=== PATIENT | female | born 1935 | race American Indian/Alaskan Native ===

== ENCOUNTER 2017-07-07 11:45 | Inpatient (IN) | payer MEDICARE ==
[2017-07-07 13:19] LABS: BASO # 0.1 K/uL (0.0-0.2); BASO % 0.8 % (0.0-2.0); EOS % 0.1 % (0.0-4.0); HEMOGLOBIN 11.7 g/dL (11.0-16.0); LYMPH # 1.6 K/uL (1.0-4.3); LYMPH % 15.4 % (20.0-40.0); MEAN CELL VOLUME 88.8 fL (81.0-99.0); MEAN CORPUSCULAR HEMOGLOBIN 29.2 pg (27.0-31.0); MEAN CORPUSCULAR HGB CONC 32.9 g/dL (33.0-37.0); MEAN PLATELET VOLUME 9.2 fL (7.2-11.7); NEUT # 7.6 K/uL (1.8-7.0); NEUT % 73.7 % (50.0-75.0); RBC 4.01 Mil/uL (3.80-5.20); RED CELL DISTRIBUTION WIDTH 15.2 % (11.5-14.5); WHITE BLOOD COUNT 10.3 K/uL (4.8-10.8)
[2017-07-07 13:27] LABS: INR 1.1; PROTHROMBIN TIME 12.6 SECONDS (9.7-12.2)
[2017-07-07 13:31] LABS: SQUAMOUS EPITHIAL 94 /hpf (0-5); URINE BACTERIA MOD (<OCC); URINE BILIRUBIN NEGATIVE (NEGATIVE); URINE BLOOD 2+ (NEGATIVE); URINE CLARITY Turbid (Clear); URINE GLUCOSE (UA) NORMAL (Normal); URINE LEUKOCYTE ESTERASE 3+ Leu/uL (Negative); URINE PROTEIN 1+ mg/dL (NEGATIVE); URINE UROBILINOGEN NORMAL mg/dL (0.2-1.0)
[2017-07-07 13:32] LABS: URINE COLOR YELLOW (YELLOW)
[2017-07-07 13:35] LABS: ALB/GLOB RATIO 1.2 (1.0-2.1); ALBUMIN 4.1 g/dL (3.5-5.0); ALT/SGPT 13 U/L (9-52); AST/SGOT 19 U/L (14-36); BLOOD UREA NITROGEN 13 mg/dL (7-17); CALCIUM 8.9 mg/dl (8.6-10.4); GFR AFRICAN-AMERICAN > 60; GFR NON-AFRICAN AMERICAN > 60
[2017-07-07 13:45] LABS: B-TYPE NATRIURETIC PEPTIDE 179 pg/mL (0-900); CK-MB 1.17 ng/mL (0.0-3.38)
--- NOTE | 2017-07-07 14:04 | C.PDOC ---
History Of Present Illness 81yo female, brought to ER for evaluation as she has been falling frequently and has had periods of confusion and became forgetful. The patient and family are unreliable historians. Patient had 2 falls from her bed last night and currently is unable to recall the falls; she denies any injuries however the family noted some swelling and redness to her left orthodoxy. Patient is currently complaining of bilateral leg swelling for the past several weeks. Time Seen by Provider: 07/07/17 12:42 Chief Complaint (Nursing): Lower Extremity Problem/Injury History Per: Patient, Family History/Exam Limitations: other (poor historians) Onset/Duration Of Symptoms: Persistent Current Symptoms Are (Timing): Still Present Past Medical History Reviewed: Historical Data, Nursing Documentation, Vital Signs Vital Signs: Last Vital Signs Temp 99.2 F 07/07/17 18:10 Pulse 77 07/07/17 18:10 Resp 20 07/07/17 18:10 BP 173/83 H 07/07/17 18:10 Pulse Ox 99 07/07/17 18:10 Surgical History: No Surg Hx Family History: States: No Known Family Hx - Social History Hx Alcohol Use: No Hx Substance Use: No - Immunization History Hx Tetanus Toxoid Vaccination: Yes Hx Influenza Vaccination: No Hx Pneumococcal Vaccination: No Review Of Systems Except As Marked, All Systems Reviewed And Found Negative. Constitutional: Positive for: Other (mutliple falls). Negative for: Fever, Chills Cardiovascular: Negative for: Chest Pain Respiratory: Negative for: Shortness of Breath Musculoskeletal: Positive for: Other (bilateral leg swelling) Neurological: Positive for: Confusion Physical Exam - Physical Exam Appears: Non-toxic Skin: Normal Color, Warm, Dry Head: Normacephalic, Swelling (mild swelling and erythema noted to left orthodoxy) Eye(s): bilateral: Normal Inspection, PERRL, EOMI Oral Mucosa: Moist Neck: Normal ROM, Supple Chest: Symmetrical Cardiovascular: Rhythm Regular Respiratory: Normal Breath Sounds Gastrointestinal/Abdominal: Normal Exam, Soft, No Tenderness Back: Normal Inspection Extremity: Normal ROM, Pedal Edema (bilateral ) Neurological/Psych: Normal Speech, Normal Cognition, Normal Motor, Normal Sensation ED Course And Treatment - Laboratory Results Result Diagrams: 07/07/17 13:12 07/07/17 13:12 ECG: Interpreted By Me, Viewed By Me ECG Rhythm: Sinus Rhythm, ST/T Changes (nonspecific) ECG Interpretation: Normal Rate From EC O2 Sat by Pulse Oximetry: 99 (RA) Pulse Ox Interpretation: Normal - Other Rad CXR X-Ray: Read By Radiologist Interpretation: PROCEDURE: CHEST RADIOGRAPH, 1 VIEW. HISTORY: multiple falls. COMPARISON: None available. FINDINGS: LUNGS: Clear. PLEURA: No pneumothorax or pleural fluid seen. CARDIOVASCULAR: No radiographic findings to suggest acute or significant cardiovascular disease. OSSEOUS STRUCTURES: No significant abnormalities. VISUALIZED UPPER ABDOMEN: Normal. OTHER FINDINGS: None. IMPRESSION: No active disease. - CT Scan/US CT Head Other Rad Studies (CT/US): Radiology Report Reviewed CT/US Interpretation: PROCEDURE: CT HEAD WITHOUT CONTRAST. HISTORY: multiple falls. COMPARISON: None available. TECHNIQUE: Axial computed tomography images were obtained through the head/brain without intravenous contrast. Radiation dose: Total exam DLP = 1602.96 mGy-cm. This CT exam was performed using one or more of the following dose reduction techniques: Automated exposure control, adjustment of the mA and/or kV according to patient size, and/ or use of iterative reconstruction technique. FINDINGS: HEMORRHAGE: No intracranial hemorrhage. BRAIN: Diffuse atrophy with prominence of the ventricles and sulci noted. No mass effect or edema. Moderate scattered white matter hypodensities, which are nonspecific, but often seen with chronic microvascular ischemic disease. Please note that MRI with diffusion imaging is more sensitive in the detection of acute ischemic event. VENTRICLES: No hydrocephalus. CALVARIUM: Unremarkable. PARANASAL SINUSES: Unremarkable as visualized. No significant inflammatory changes. MASTOID AIR CELLS: Unremarkable as visualized. No inflammatory changes. OTHER FINDINGS: None. IMPRESSION: Moderate nonspecific white matter changes. Please note that MRI with diffusion imaging is more sensitive in the detection of acute ischemic event. Progress Note: Labs, urinalysis ordered and reviewed, patient has a UTI. Rocephin IVPB given. CT head reviewed with no acute findings. Patient informed of plan for admission and is agreeable. - Physician Consult Information Time Consulting Physician Contacted: 16:40 Outcome Of Conversation: Case discussed with Dr. Conteh, patient's PCP who recommends admission. Disposition - Disposition Disposition: HOSPITALIZED Disposition Time: 16:39 Condition: FAIR - Clinical Impression Clinical Impression: Altered mental status, UTI (urinary tract infection), Frequent falls - PA / MANUFACTURERS REPRESENTATIVE / Resident Statement MD/DO has reviewed & agrees with the documentation as recorded. - Scribe Statement The provider has reviewed the documentation as recorded by the Scribe (Anat Figueroa) Provider Attestation: All medical record entries made by the Scribe were at my direction and personally dictated by me. I have reviewed the chart and agree that the record accurately reflects my personal performance of the history, physical exam, medical decision making, and the department course for this patient. I have also personally directed, reviewed, and agree with the discharge instructions and disposition.
[2017-07-07] MEDS ORDERED: cefTRIAXone IV 1 gm in Dextros 50 ML IVPB STA (14:07)
[2017-07-07] MEDS ORDERED: cefTRIAXone IV 1 gm in Dextros 50 ML IVPB ONE (15:16)
--- NOTE | 2017-07-07 15:36 | RAD ---
PROCEDURE: CHEST RADIOGRAPH, 1 VIEW HISTORY: multiple falls COMPARISON: None available. FINDINGS: LUNGS: Clear. PLEURA: No pneumothorax or pleural fluid seen. CARDIOVASCULAR: No radiographic findings to suggest acute or significant cardiovascular disease. OSSEOUS STRUCTURES: No significant abnormalities. VISUALIZED UPPER ABDOMEN: Normal. OTHER FINDINGS: None. IMPRESSION: No active disease.
--- NOTE | 2017-07-07 15:46 | CT ---
PROCEDURE: CT HEAD WITHOUT CONTRAST. HISTORY: multiple falls COMPARISON: None available. TECHNIQUE: Axial computed tomography images were obtained through the head/brain without intravenous contrast. Radiation dose: Total exam DLP = 1602.96 mGy-cm. This CT exam was performed using one or more of the following dose reduction techniques: Automated exposure control, adjustment of the mA and/or kV according to patient size, and/or use of iterative reconstruction technique. FINDINGS: HEMORRHAGE: No intracranial hemorrhage. BRAIN: Diffuse atrophy with prominence of the ventricles and sulci noted. No mass effect or edema. Moderate scattered white matter hypodensities, which are nonspecific, but often seen with chronic microvascular ischemic disease. Please note that MRI with diffusion imaging is more sensitive in the detection of acute ischemic event. VENTRICLES: No hydrocephalus. CALVARIUM: Unremarkable. PARANASAL SINUSES: Unremarkable as visualized. No significant inflammatory changes. MASTOID AIR CELLS: Unremarkable as visualized. No inflammatory changes. OTHER FINDINGS: None. IMPRESSION: Moderate nonspecific white matter changes. Please note that MRI with diffusion imaging is more sensitive in the detection of acute ischemic event.
[2017-07-07] MEDS: Sodium Chloride 0.9% 1,000 ML IV SCH ×2 (19:30→19:48)
[2017-07-07] MEDS: (Novolin R) Insulin Human Regular 100 units/ml vial SC SCH (21:13)
--- NOTE | 2017-07-07 22:52 | CP.PCM.HP ---
History of Present Illness - History of Present Illness History of Present Illness: Chief Complaint : recurrent fallsLower Extremity Problem/Injury History Of Present Illness 81yo female with PMh of DM , not on any medication, HTn, hyperlipidemia, independent in ADL,brought to ER for evaluation as she has been falling frequently and has had periods of confusion and became forgetful. The patient and family are unreliable historians. Patient had 2 falls from her bed last night and currently is unable to recall the falls any events prior to fall or after fall; she denies any injuries however the family noted some swelling and redness to her left hindu. Patient is currently complaining of bilateral leg swelling for the past several weeks. Present on Admission - Present on Admission Any Indicators Present on Admission: Yes Review of Systems - Constitutional Constitutional: Fatigue, Lethargy, Malaise, Weakness - EENT Eyes: absent: As Per HPI, Blind Spots, Blurred Vision, Change in Vision, Decreased Night Vision, Diplopia, Discharge, Dry Eye, Exophthalmos, Floaters, Irritation, Itchy Eyes, Loss of Peripheral Vision, Pain, Photophobia, Requires Corrective Lenses, Sees Flashes, Spots in Vision, Tunnel Vision, Other Visual Disturbances, Loss of Vision, Other Ears: absent: As Per HPI, Decreased Hearing, Ear Discharge, Ear Pain, Tinnitus, Abnormal Hearing, Disequilibrium, Dizziness, Other Nose/Mouth/Throat: absent: As Per HPI, Epistaxis, Nasal Congestion, Nasal Discharge, Nasal Obstruction, Nasal Trauma, Nose Pain, Post Nasal Drip, Sinus Pain, Sinus Pressure, Bleeding Gums, Change in Voice, Dental Pain, Dry Mouth, Dysphagia, Halitosis, Hoarsness, Lip Swelling, Mouth Lesions, Mouth Pain, Odynophagia, Sore Throat, Throat Swelling, Tongue Swelling, Facial Pain, Neck Pain, Neck Mass, Other - Respiratory Respiratory: absent: As Per HPI, Cough, Dyspnea, Hemoptysis, Dyspnea on Exertion , Wheezing, Snoring, Stridor, Pain on Inspiration, Chest Congestion, Excessive Mucous Production, Change in Mucous Color, Pain with Coughing, Other - Gastrointestinal Gastrointestinal: absent: As Per HPI, Abdominal Pain, Belching, Bloating, Change in Bowel Habits, Change in Stool Character, Coffee Ground Emesis, Constipation, Cramping, Diarrhea, Dyspepsia, Dysphagia, Early Satiety, Excessive Flatus, Fecal Incontinence, Heartburn, Hematemesis, Hematochezia, Loose Stools, Melena, Nausea, Odynophagia, Temesmus, Vomiting, Other - Genitourinary Genitourinary: absent: As Per HPI, Change in Urinary Stream, Difficulty Urinating, Dysuria, Flank Pain, Hematuria, Pyuria, Nocturia, Urinary Incontinence, Urinary Frequency, Urinary Hesitance, Urinary Urgency, Voiding Freq/Small Amts, Freq UTI, Hx Renal/Bladder Calculi, Hx /Renal Surgery, Bladder Distension, Other - Musculoskeletal Musculoskeletal: Abnormal Gait, Muscle Weakness, Myalgias, Stiffness - Integumentary Integumentary: New Lesions, Wounds - Neurological Neurological: Frequent Falls Past Patient History - Past Medical History & Family History Past Medical History?: Yes - Past Social History Smoking Status: Light Smoker < 10 Cigarettes Daily - CARDIAC Hx Hypertension: Yes - PULMONARY Hx Respiratory Disorders: No - NEUROLOGICAL Hx Neurological Disorder: No - HEENT Hx HEENT Problems: No - RENAL Hx Chronic Kidney Disease: No - ENDOCRINE/METABOLIC Hx Diabetes Mellitus Type 2: Yes - HEMATOLOGICAL/ONCOLOGICAL Hx Blood Disorders: No - INTEGUMENTARY Hx Dermatological Problems: No - MUSCULOSKELETAL/RHEUMATOLOGICAL Hx Musculoskeletal Disorders: No Hx Falls: Yes - GASTROINTESTINAL Hx Gastrointestinal Disorders: No - GENITOURINARY/GYNECOLOGICAL Hx Genitourinary Disorders: No - PSYCHIATRIC Hx Psychophysiologic Disorder: No Hx Substance Use: No - SURGICAL HISTORY Hx Surgeries: No - ANESTHESIA Hx Anesthesia: No Hx Anesthesia Reactions: No Meds Allergies/Adverse Reactions: Allergies Allergy/AdvReac Type Severity Reaction Status Date / Time No Known Allergies Allergy Unverified 07/07/17 12:04 Physical Exam - Constitutional Appears: No Acute Distress - Head Exam Head Exam: ATRAUMATIC, NORMAL INSPECTION, NORMOCEPHALIC - Eye Exam Eye Exam: EOMI, Normal appearance, PERRL Pupil Exam: NORMAL ACCOMODATION, PERRL - Respiratory Exam Respiratory Exam: Clear to Auscultation Bilateral, NORMAL BREATHING PATTERN - Cardiovascular Exam Cardiovascular Exam: REGULAR RHYTHM - Extremities Exam Additional comments: tenderness on right foot arch erythema, laceration Results - Vital Signs Recent Vital Signs: Last Vital Signs Temp 97.7 F 07/07/17 20:45 Pulse 89 07/07/17 20:45 Resp 20 07/07/17 20:45 BP 150/65 07/07/17 20:45 Pulse Ox 97 07/07/17 20:45 - Labs Result Diagrams: 07/07/17 13:12 07/07/17 13:12 Labs: Laboratory Results - last 24 hr 07/07/17 07/07/17 07/07/17 13:12 13:12 13:15 WBC 10.3 RBC 4.01 Hgb 11.7 Hct 35.6 MCV 88.8 MCH 29.2 MCHC 32.9 L RDW 15.2 H Plt Count 239 MPV 9.2 Neut % (Auto) 73.7 Lymph % (Auto) 15.4 L [place] % (Auto) 10.0 Eos % (Auto) 0.1 Baso % (Auto) 0.8 Neut # (Auto) 7.6 H Lymph # (Auto) 1.6 [place] # (Auto) 1.0 H Eos # (Auto) 0.0 Baso # (Auto) 0.1 PT INR APTT Sodium 140 Potassium 4.1 Chloride 102 Carbon Dioxide 26 Anion Gap 16 BUN 13 Creatinine 0.7 Est GFR ( Amer) > 60 Est GFR (Non-Af Amer) > 60 POC Glucose (mg/dL) Random Glucose 111 H Calcium 8.9 Magnesium 1.9 Total Bilirubin 0.7 AST 19 ALT 13 Alkaline Phosphatase 80 Total Creatine Kinase 92 CK-MB (Mass) 1.17 Troponin I < 0.0120 NT-Pro-B Natriuret Pep 179 Total Protein 7.4 Albumin 4.1 Globulin 3.3 Albumin/Globulin Ratio 1.2 Urine Color Yellow Urine Clarity Turbid Urine pH 5.0 Ur Specific [place] 1.017 Urine Protein 1+ H Urine Glucose (UA) Normal Urine Ketones Negative Urine Blood 2+ H Urine Nitrate Negative Urine Bilirubin Negative Urine Urobilinogen Normal Ur Leukocyte Esterase 3+ H Urine WBC (Auto) 43 H Urine RBC (Auto) 15 H Ur Squamous Epith Cells 94 H Urine Bacteria Mod H 07/07/17 07/07/17 13:18 21:00 WBC RBC Hgb Hct MCV MCH MCHC RDW Plt Count MPV Neut % (Auto) Lymph % (Auto) [place] % (Auto) Eos % (Auto) Baso % (Auto) Neut # (Auto) Lymph # (Auto) [place] # (Auto) Eos # (Auto) Baso # (Auto) PT 12.6 H INR 1.1 APTT 38 H Sodium Potassium Chloride Carbon Dioxide Anion Gap BUN Creatinine Est GFR ( Amer) Est GFR (Non-Af Amer) POC Glucose (mg/dL) 121 H Random Glucose Calcium Magnesium Total Bilirubin AST ALT Alkaline Phosphatase Total Creatine Kinase CK-MB (Mass) Troponin I NT-Pro-B Natriuret Pep Total Protein Albumin Globulin Albumin/Globulin Ratio Urine Color Urine Clarity Urine pH Ur Specific [place] Urine Protein Urine Glucose (UA) Urine Ketones Urine Blood Urine Nitrate Urine Bilirubin Urine Urobilinogen Ur Leukocyte Esterase Urine WBC (Auto) Urine RBC (Auto) Ur Squamous Epith Cells Urine Bacteria Assessment & Plan (1) Diabetes Status: Acute (2) HTN (hypertension) Status: Acute (3) Altered mental status Status: Acute (4) Frequent falls Status: Acute
[2017-07-08] MEDS: Sodium Chloride 0.9% 1,000 ML IV SCH ×2 (06:31→19:00)
[2017-07-08] MEDS: (Novolin R) Insulin Human Regular 100 units/ml vial SC SCH ×4 (07:56→21:58)
[2017-07-08] MEDS: Enoxaparin 40 mg Syringe SC SCH (10:10)
[2017-07-08 14:19] LABS: HEMOGLOBIN 12.2 g/dL (11.0-16.0); MEAN CORPUSCULAR HGB CONC 32.9 g/dL (33.0-37.0); MEAN PLATELET VOLUME 8.6 fL (7.2-11.7); RBC 4.19 Mil/uL (3.80-5.20); RED CELL DISTRIBUTION WIDTH 14.6 % (11.5-14.5)
[2017-07-08 14:56] LABS: BLOOD UREA NITROGEN 8 mg/dL (7-17); CALCIUM 8.2 mg/dl (8.6-10.4); GFR AFRICAN-AMERICAN > 60; GFR NON-AFRICAN AMERICAN > 60
--- NOTE | 2017-07-08 16:14 | RAD ---
PROCEDURE: Bilateral Knee Radiographs. HISTORY: S/P FALL COMPARISON: None. FINDINGS: BONES: Right Knee: Subchondral sclerosis and knee joint line spurring present findings more advanced and right lateral femoral tibial compartment Left Knee: Similar to the right side JOINTS: Right Knee: Moderate to severe osteoarthrosis lateral femoral tibial compartment. Limited evaluation of the lateral tibial subchondral region -marked narrowing, subchondral sclerosis and probable projectional effects limiting assessment Left knee: Moderate osteoarthrosis lateral femoral tibial compartment SOFT TISSUES: Right Knee: Normal. Left Knee: Normal. JOINT EFFUSION: Right Knee: Present larger than left Left Knee: Present OTHER FINDINGS: Right patellar [place] IMPRESSION: Bilateral arthrosis right knee greater than left right lateral tibial plateau subchondral sclerosis and osseous hypertrophic changes -these findings limit optimal evaluation for any additional subchondral pathology here. Specifically an additional right lateral tibial plateau subchondral stress fracture and/or subchondral insufficiency type fracture is difficult to completely exclude. If clinically suspect this, consider CT or MRI to further evaluate Bilateral effusions right greater than left. Right patellar [place]
--- NOTE | 2017-07-08 23:48 | CP.PCM.PN ---
Subjective - Date & Time of Evaluation Date of Evaluation: 07/08/17 Time of Evaluation: 17:00 - Subjective Subjective: Patient is seen and evaluated today during routine rounds, pt is confused, delerious, she has mittens in her hands Objective - Vital Signs/Intake and Output Vital Signs (last 24 hours): Temp Pulse Resp BP Pulse Ox 98 F 72 20 150/76 96 07/08/17 16:22 07/08/17 16:22 07/08/17 16:22 07/08/17 16:22 07/08/17 16:22 Intake and Output: 07/08/17 07/09/17 18:59 06:59 Intake Total 1000 842 Output Total 350 Balance 1000 492 - Medications Medications: Current Medications Acetaminophen (Tylenol 325mg Tab) 650 mg PO Q6 PRN PRN Reason: Pain, moderate (4-7) Enoxaparin Sodium (Lovenox) 40 mg SC DAILY [facility] Last Admin: 07/08/17 10:10 Dose: 40 mg Ceftriaxone Sodium 1 gm/ (Sodium Chloride) 100 mls @ 100 mls/hr IVPB DAILY [facility] PRN Reason: Protocol Last Admin: 07/08/17 09:53 Dose: 100 mls/hr Sodium Chloride (Sodium Chloride 0.9%) 1,000 mls @ 80 mls/hr IV .[id number] [facility] Last Admin: 07/08/17 19:00 Dose: Not Given Insulin Human Regular (Novolin R) 0 unit SC ACHS [facility] PRN Reason: Protocol Last Admin: 07/08/17 21:58 Dose: Not Given Losartan Potassium (Cozaar) 50 mg PO DAILY [facility] Last Admin: 07/08/17 09:53 Dose: 50 mg - Labs Labs: 07/08/17 14:11 07/08/17 14:11 PT 12.6 SECONDS (9.7-12.2) H 07/07/17 13:18 INR 1.1 07/07/17 13:18 APTT 38 SECONDS (21-34) H 07/07/17 13:18 - Constitutional Appears: No Acute Distress - Head Exam Head Exam: ATRAUMATIC, NORMAL INSPECTION, NORMOCEPHALIC - Eye Exam Eye Exam: EOMI, Normal appearance, PERRL Pupil Exam: NORMAL ACCOMODATION, PERRL - Respiratory Exam Respiratory Exam: Clear to Ausculation Bilateral, NORMAL BREATHING PATTERN - Cardiovascular Exam Cardiovascular Exam: REGULAR RHYTHM, +S1, +S2. absent: Murmur - GI/Abdominal Exam GI & Abdominal Exam: Soft, Normal Bowel Sounds. absent: Tenderness - Neurological Exam Neurological Exam: Altered Additional comments: disoriented to time, place , person delirious - Psychiatric Exam Psychiatric exam: Anxious - Skin Skin Exam: Normal Color Assessment and Plan (1) Diabetes Status: Acute (2) HTN (hypertension) Status: Acute (3) Altered mental status Assessment & Plan: rule out toxic metabolic encephalopathy dementia/ delerium dementia workup Status: Acute (4) Frequent falls Status: Acute (5) UTI (urinary tract infection) Assessment & Plan: antibiotics urine culture pending Status: Acute
[2017-07-09] MEDS: Sodium Chloride 0.9% 1,000 ML IV SCH (00:27)
[2017-07-09 07:34] LABS: BASO # 0.1 K/uL (0.0-0.2); EOS % 0.5 % (0.0-4.0); HEMOGLOBIN 12.3 g/dL (11.0-16.0); LYMPH # 1.8 K/uL (1.0-4.3); LYMPH % 19.1 % (20.0-40.0); MEAN CELL VOLUME 88.1 fL (81.0-99.0); MEAN CORPUSCULAR HEMOGLOBIN 29.3 pg (27.0-31.0); MEAN CORPUSCULAR HGB CONC 33.3 g/dL (33.0-37.0); MEAN PLATELET VOLUME 9.8 fL (7.2-11.7); MONO # 1.1 K/uL (0.0-0.8); MONO % 11.5 % (0.0-10.0); NEUT # 6.6 K/uL (1.8-7.0); NEUT % 67.9 % (50.0-75.0); RBC 4.19 Mil/uL (3.80-5.20); RED CELL DISTRIBUTION WIDTH 14.4 % (11.5-14.5); WHITE BLOOD COUNT 9.7 K/uL (4.8-10.8)
[2017-07-09 07:47] LABS: ALBUMIN 3.5 g/dL (3.5-5.0); ALT/SGPT 17 U/L (9-52); AST/SGOT 22 U/L (14-36); BLOOD UREA NITROGEN 5 mg/dL (7-17); CALCIUM 8.4 mg/dl (8.6-10.4); GFR AFRICAN-AMERICAN > 60; GFR NON-AFRICAN AMERICAN > 60
[2017-07-09] MEDS: (Novolin R) Insulin Human Regular 100 units/ml vial SC SCH ×4 (07:47→22:10)
[2017-07-09] MEDS: Enoxaparin 40 mg Syringe SC SCH (09:27)
[2017-07-09] MEDS ORDERED: Potassium Chloride 20 mEq ER Tab PO ONE (10:00)
[2017-07-09] MEDS ORDERED: Potassium Chloride 20 mEq/15 ml LIQ UD PO STA (11:16)
--- NOTE | 2017-07-09 11:28 | MRI ---
PROCEDURE: MRI BRAIN WITHOUT CONTRAST HISTORY: NEW ONSET OF DEMENTIA COMPARISON: Unenhanced head CT 12/07/2017. TECHNIQUE: Multiplanar, multisequence MR images of the brain were obtained without intravenous contrast enhancement. FINDINGS: The study is markedly compromised by motion artifacts throughout the vast majority of sequences acquired. HEMORRHAGE: No definitive intracranial hemorrhage identified. DWI: No definite evidence of an acute or early subacute infarction. BRAIN PARENCHYMA: There is no mass effect appreciated although diffuse cerebral atrophy and chronic microangiopathy appear reiterated. No suspicious extra-axial fluid collection identified. VENTRICLES: Unremarkable. No hydrocephalus. CRANIUM: Unremarkable. ORBITS: Grossly unremarkable. PARANASAL SINUSES/MASTOIDS: Clear VASCULAR SYSTEM: Skull base flow voids intact. OTHER FINDINGS: None. IMPRESSION: No definite acute separate brain infarction appreciable. Age-related neuro degenerative changes appear reiterated. The examination is compromised by excessive motion artifact as discussed above.
[2017-07-09 11:46] LABS: FOLATE 6.2 ng/mL
--- NOTE | 2017-07-09 12:33 | CARD ---
APPROVED REPORT EKG Measurement Heart [id number] <Conclusion> Normal sinus rhythm Nonspecific ST and T wave abnormality Abnormal ECG
--- NOTE | 2017-07-09 14:59 | CP.PCM.PN ---
Subjective - Date & Time of Evaluation Date of Evaluation: 07/09/17 Time of Evaluation: 14:53 - Subjective Subjective: Ortho Dr. Jean, full consult to follow 81F complains of right knee pain after fall per granddaughter. They give history as patient confused at times. She has had chronic knee pain due to arthritis and has seen Dr. Jean in the past, she can not remember if she has had injection in the past. She has had a few recent falls, but after latest she is complaining of right knee pain and is unable to walk. She has a walker for ambulation, but at times refuses to use it. She denies pain in other leg/knee/ upper extremities at thist time. Denies CP/SOB/n/v/dizziness/numbnss/ Objective - Vital Signs/Intake and Output Vital Signs (last 24 hours): Temp Pulse Resp BP Pulse Ox 98.0 F 66 20 165/71 H 95 07/09/17 07:00 07/09/17 07:00 07/09/17 07:00 07/09/17 07:00 07/09/17 07:00 Intake and Output: 07/09/17 07/09/17 06:59 18:59 Intake Total 842 Output Total 350 Balance 492 - Medications Medications: Current Medications Acetaminophen (Tylenol 325mg Tab) 650 mg PO Q6 PRN PRN Reason: Pain, moderate (4-7) Enoxaparin Sodium (Lovenox) 40 mg SC DAILY [facility] Last Admin: 07/09/17 09:27 Dose: 40 mg Ceftriaxone Sodium 1 gm/ (Sodium Chloride) 100 mls @ 100 mls/hr IVPB DAILY [facility] PRN Reason: Protocol Last Admin: 07/09/17 09:28 Dose: 100 mls/hr Sodium Chloride (Sodium Chloride 0.9%) 1,000 mls @ 80 mls/hr IV .[id number] [facility] Last Admin: 07/09/17 00:27 Dose: 80 mls/hr Insulin Human Regular (Novolin R) 0 unit SC ACHS [facility] PRN Reason: Protocol Last Admin: 07/09/17 12:34 Dose: 1 unit Losartan Potassium (Cozaar) 50 mg PO DAILY [facility] Last Admin: 07/09/17 09:28 Dose: 50 mg - Labs Labs: 07/09/17 07:19 07/09/17 07:19 PT 12.6 SECONDS (9.7-12.2) H 07/07/17 13:18 INR 1.1 07/07/17 13:18 APTT 38 SECONDS (21-34) H 07/07/17 13:18 - Extremities Exam Additional comments: L knee: valgus, mild, no jointeffusion, no laxity, no tenderness R knee : moderate valgus, TTP medial and lateral joint lines and popliteal fossa, mod+joint effusion, not warm no erythema, will do SLR but complains of pain with flexion, calves soft NT neg homans, no laxity to varus/valgus, doesn' t tolerate lang. No crepitus, skin intact +DP/PT pulses sensation intact Assessment and Plan (1) Degenerative arthritis of left knee Assessment & Plan: s/p fall r/o OA exacerbation vs fx significant joint effusion and tenderness ?insuff fx on xray CT ordered (pt likely not able to tolerate MRI) tammi/knee immobilizer as precaution VTE proph will update WB status after imaging d/w Dr. Jean, agrees with above Status: Acute (2) Primary osteoarthritis of right knee Status: Acute
[2017-07-09 15:47] LABS: FOLATE 4.9 ng/mL
--- NOTE | 2017-07-09 17:56 | CT ---
EXAM: CT Right Lower Extremity Without Intravenous Contrast, Knee EXAM DATE/TIME: Exam ordered 07/09/2017 4:18 PM CLINICAL HISTORY: 81 years old, female; Pain; Knee; Right TECHNIQUE: Axial computed tomography images of the right knee without intravenous contrast. All CT scans at this facility use one or more dose reduction techniques, viz.: automated exposure control; ma/kV adjustment per patient size (including targeted exams where dose is matched to indication; i.e. head); or iterative reconstruction technique. Coronal and sagittal reformatted images were created and reviewed. COMPARISON: No relevant prior studies available. FINDINGS: Bones/joints: There is a moderate to large knee joint effusion. There is generalized decrease in bone density. Moderately advanced, osteoarthritis is noted with joint space narrowing, large marginal osteophytes and subchondral sclerosis and subchondral cyst formation. No acute fracture. No dislocation. Soft tissues: Unremarkable. Vasculature: Vascular calcifications are present. IMPRESSION: 1. Moderately advanced primary osteoarthritis. 2. Moderate to large joint effusion
[2017-07-09 20:19] LABS: RAPID PLASMA REAGIN REACTIVE (NONREACTIVE)
--- NOTE | 2017-07-09 23:20 | CP.PCM.PN ---
Subjective - Date & Time of Evaluation Date of Evaluation: 07/09/17 Time of Evaluation: 17:35 - Subjective Subjective: pt is confused, restless and she has possibilty of right leg fracture Objective - Vital Signs/Intake and Output Vital Signs (last 24 hours): Temp Pulse Resp BP Pulse Ox 97.5 F L 85 18 174/68 H 96 07/09/17 16:50 07/09/17 16:50 07/09/17 16:50 07/09/17 16:50 07/09/17 16:50 Intake and Output: 07/09/17 07/10/17 18:59 06:59 Intake Total 1060 Output Total 500 Balance 560 - Medications Medications: Current Medications Acetaminophen (Tylenol 325mg Tab) 650 mg PO Q6 PRN PRN Reason: Pain, moderate (4-7) Enoxaparin Sodium (Lovenox) 40 mg SC DAILY [facility] Last Admin: 07/09/17 09:27 Dose: 40 mg Ceftriaxone Sodium 1 gm/ (Sodium Chloride) 100 mls @ 100 mls/hr IVPB DAILY [facility] PRN Reason: Protocol Last Admin: 07/09/17 09:28 Dose: 100 mls/hr Sodium Chloride (Sodium Chloride 0.9%) 1,000 mls @ 80 mls/hr IV .[id number] [facility] Last Admin: 07/09/17 00:27 Dose: 80 mls/hr Insulin Human Regular (Novolin R) 0 unit SC ACHS [facility] PRN Reason: Protocol Last Admin: 07/09/17 22:10 Dose: Not Given Losartan Potassium (Cozaar) 50 mg PO DAILY [facility] Last Admin: 07/09/17 09:28 Dose: 50 mg - Labs Labs: 07/09/17 07:19 07/09/17 07:19 PT 12.6 SECONDS (9.7-12.2) H 07/07/17 13:18 INR 1.1 07/07/17 13:18 APTT 38 SECONDS (21-34) H 07/07/17 13:18 - Constitutional Appears: No Acute Distress, Agitated - Respiratory Exam Respiratory Exam: Clear to Ausculation Bilateral, NORMAL BREATHING PATTERN - Cardiovascular Exam Cardiovascular Exam: REGULAR RHYTHM, +S1, +S2. absent: Murmur - Extremities Exam Additional comments: cast on right leg - Neurological Exam Neurological Exam: Oriented x3 Assessment and Plan (1) Diabetes Status: Acute (2) HTN (hypertension) Status: Acute (3) Altered mental status Status: Acute (4) Frequent falls Status: Acute
--- NOTE | 2017-07-10 03:59 | CON ---
DATE: CHIEF COMPLAINT/REASON FOR CONSULTATION: The patient was referred by Dr. Conteh for evaluation for change of mental status. The patient was evaluated for possible dementia, but the patient has been having increasing confusion according to the family and memory loss for the last few days. HISTORY OF PRESENT ILLNESS: This is case of a 81-year-old female, who was brought in here for change of mental status as well as history of multiple falls and increasing confusion. According to the granddaughter who was with her at bedside reports her grandmother was doing well until a few days ago. The patient also has been having problems keeping her balance and has been falling. She also has not been eating well and is complaining of some increased urgency to urinate. Urinalysis showed that the patient has evidence of urinary tract infection, admitted here for treatment. The patient when seen in the 4 bedded observation room, continues to have intermittent periods of confusion. She does not know that she is in the hospital, but she knows that she is in [place]. She is not agitated, but needs monitoring. The patient has received antibiotic when seen. PAST PSYCHIATRIC HISTORY: Denies any. The patient has a CAT scan of the head done earlier, that showed the following result. The patient showed diffuse atrophy with prominence of the ventricle and sulci noted. Otherwise, moderate nonspecific white matter changes. Please note that MRI of the diffusion imaging is more sensitive than detection of acute ischemic event. The patient had an MRI of the brain done subsequently and showed the following findings. No definite acute separate brain infraction appreciable. Age related neuro degenerative changes appears to be reiterated. The patient when seen today is calm, but still confused and seen in the four-bedded observation room. PAST MEDICAL HISTORY: The patient has history of diabetes, hypertension, history of degenerative arthritis in the left and right knee, history of frequent falls. DRUG AND ALCOHOL HISTORY: Denies any. PSYCHOSOCIAL HISTORY: The patient lives with her family, a two family house. She cannot give much psychosocial history due to her confusion. CURRENT MEDICATIONS: Ceftriaxone, losartan, Lovenox, Novolin, and Tylenol. LABORATORY DATA: Review of her labs showed her WBC is 9.7, H and H is 12.3 and 36.9. The patient's potassium is quite low at 3.4. Her creatinine is 0.5. BUN is 5. Glucose is 101. Her calcium is still low at 8.4. Liver function test is within normal limits. B12 last one is 402, folate is 4.9, and TSH is 1.68. Urine showed signs of urinary tract infection. She has +1 for protein, +2 for blood, +3 for leukocyte esterase, presence of urine wbc 43,, urine rbc 15, urine squamous epithelial cells 94 , and moderate urine bacteria. PHYSICAL EXAMINATION: VITAL SIGNS: Temperature is 98, pulse is 66, blood pressure 165/71, respirations 20, oxygen saturation is 95% on room air. REVIEW OF SYSTEMS: GENERAL: The patient is seen in the four-bedded room, alert, but confused. The patient is not sure if she is at home or hospital. She does not know that she is the hospital. She is only oriented to person. She was seen with the family members at bedside. She is not agitated. SKIN: No diaphoresis. HEENT: No headache or dizziness. NECK: Supple. RESPIRATORY: No dyspnea. CARDIOPULMONARY: No chest pain. GASTROINTESTINAL: Appetite is variable. EXTREMITIES: Complaining of pain in her knees. The patient seems to have arthritis. MUSCULOSKELETAL: Feels weak. NEUROLOGIC: Alert with periods of confusion. GENITOURINARY: Complaining of increased urination. MENTAL STATUS EXAMINATION: Elderly female who looks stated age, oriented x1 for now, still confused, speech spontaneous, affect is reactive, mood is dysphoric. Thought process confused. Thought content, no overt psychosis. No suicidal or homicidal ideations. Attention and memory seem to be limited. Insight and judgement limited. Impulse control is fair at this time. IMPRESSION: Delirium, metabolic encephalopathy most probably secondary to urinary tract infection. PLAN AND RECOMMENDATIONS: The patient is seen, meds reviewed. The patient is manageable at this time. The patient has been prescribed with Dr. Conteh with antibiotics. She is currently taking ceftriaxone for now. We will hold off any psych meds for now as the patient's confusion may be related to her urinary tract infection. She is not agitated. She is able to follow directions and we will just keep her in the four-bedded room for close monitoring. The patient also may benefit from subacute rehab as the patient has history of multiple falls, although her CAT scan showed moderate degree of atrophy, the patient was sent off for possible dementia, especially that she has significant atrophy in her brain. For now, we will hold off any psych meds. We will discontinue antibiotics and monitor her change in mental status. As stated, the patient and the family seems to be expressing interest for the patient to go to subacute rehab for reconditioning once she is more medically stable. Huey Simmons MD [facility]
[2017-07-10] MEDS: (Novolin R) Insulin Human Regular 100 units/ml vial SC SCH ×4 (07:29→22:51)
[2017-07-10 08:52] LABS: BASO # 0.1 K/uL (0.0-0.2); BASO % 0.7 % (0.0-2.0); EOS # 0.1 K/uL (0.0-0.7); EOS % 1.3 % (0.0-4.0); HEMOGLOBIN 12.7 g/dL (11.0-16.0); LYMPH # 1.4 K/uL (1.0-4.3); LYMPH % 17.2 % (20.0-40.0); MEAN CELL VOLUME 89.1 fL (81.0-99.0); MEAN CORPUSCULAR HEMOGLOBIN 29.2 pg (27.0-31.0); MEAN CORPUSCULAR HGB CONC 32.8 g/dL (33.0-37.0); MEAN PLATELET VOLUME 9.4 fL (7.2-11.7); MONO # 0.8 K/uL (0.0-0.8); MONO % 9.8 % (0.0-10.0); NEUT # 5.8 K/uL (1.8-7.0); NRBC % 0.1 % (0.0-2.0); RBC 4.36 Mil/uL (3.80-5.20); RED CELL DISTRIBUTION WIDTH 14.3 % (11.5-14.5); WHITE BLOOD COUNT 8.2 K/uL (4.8-10.8)
[2017-07-10] MEDS: Sodium Chloride 0.9% 1,000 ML IV SCH (09:09)
[2017-07-10 09:10] LABS: ALB/GLOB RATIO 0.9 (1.0-2.1); ALBUMIN 3.4 g/dL (3.5-5.0); ALT/SGPT 20 U/L (9-52); AST/SGOT 19 U/L (14-36); BLOOD UREA NITROGEN 5 mg/dL (7-17); CALCIUM 8.3 mg/dl (8.6-10.4); GFR AFRICAN-AMERICAN > 60; GFR NON-AFRICAN AMERICAN > 60
--- NOTE | 2017-07-10 09:13 | CP.PCM.PN ---
Subjective - Date & Time of Evaluation Date of Evaluation: 07/10/17 Time of Evaluation: 08:00 - Subjective Subjective: Patient more confused today. Complains of pain with palpation of calf and gets quickly agitated. Review of Systems - Review of Systems Systems not reviewed;Unavailable: Dementia Objective - Vital Signs/Intake and Output Vital Signs (last 24 hours): Temp Pulse Resp BP Pulse Ox 97.9 F 81 18 155/66 H 94 L 07/10/17 07:21 07/10/17 07:21 07/10/17 07:21 07/10/17 07:21 07/10/17 07:21 Intake and Output: 07/10/17 07/10/17 06:59 18:59 Output Total 900 Balance -900 - Medications Medications: Current Medications Acetaminophen (Tylenol 325mg Tab) 650 mg PO Q6 PRN PRN Reason: Pain, moderate (4-7) Enoxaparin Sodium (Lovenox) 40 mg SC DAILY [facility] Last Admin: 07/09/17 09:27 Dose: 40 mg Ceftriaxone Sodium 1 gm/ (Sodium Chloride) 100 mls @ 100 mls/hr IVPB DAILY [facility] PRN Reason: Protocol Last Admin: 07/09/17 09:28 Dose: 100 mls/hr Sodium Chloride (Sodium Chloride 0.9%) 1,000 mls @ 80 mls/hr IV .[id number] [facility] Last Admin: 07/10/17 09:09 Dose: Not Given Insulin Human Regular (Novolin R) 0 unit SC ACHS [facility] PRN Reason: Protocol Last Admin: 07/10/17 07:29 Dose: Not Given Losartan Potassium (Cozaar) 50 mg PO DAILY [facility] Last Admin: 07/09/17 09:28 Dose: 50 mg - Labs Labs: 07/10/17 08:41 07/10/17 08:41 PT 12.6 SECONDS (9.7-12.2) H 07/07/17 13:18 INR 1.1 07/07/17 13:18 APTT 38 SECONDS (21-34) H 07/07/17 13:18 - Constitutional Appears: Well, No Acute Distress - Respiratory Exam Respiratory Exam: NORMAL BREATHING PATTERN - Extremities Exam Additional comments: RIght knee effusion, generalized TTP, no change from yesterday. No erythema. today complains of pain with palpation of calf. No increase in swlling. knee immobilizer removed. +DP/PT pulses, reacts to light touch. - Neurological Exam Neurological Exam: Awake Neuro motor strength exam: Right Lower Extremity: 5 (ankle/toes +ROM ) - Psychiatric Exam Psychiatric exam: Agitated - Skin Skin Exam: Dry, Intact, Normal Color, Warm Assessment and Plan (1) Primary osteoarthritis of right knee Assessment & Plan: CT negative for fx likely OA exacerbation from fall knee immob prn for ambulation PT/OT VTE proph patient now complaining of calf pain on right, will get dopplers and if negative apply SCDs d/w DR. Jean, agrees with above Status: Acute (2) Degenerative arthritis of left knee Status: Acute
--- NOTE | 2017-07-10 10:38 | CP.PCM.CON ---
History of Present Illness - History of Present Illness History of Present Illness: Podiatry note for Dr. Van 76 year old male patient with PMHx DM , HTN, hyperlipidemia was seen at bedside this morning after request for podiatry consultation concerning mycotic, elongated, dystrophic toenails x10. Patient was resting comfortably in bed at the time of visit. AAO x3. Patient denies of any other pedal complaints. Patient denies of any N/V/F/C or SOB today Review of Systems - Constitutional Constitutional: As Per HPI Past Patient History - Past Medical History & Family History Past Medical History?: Yes - Past Social History Smoking Status: Light Smoker < 10 Cigarettes Daily - CARDIAC Hx Hypertension: Yes - PULMONARY Hx Respiratory Disorders: No - NEUROLOGICAL Hx Neurological Disorder: No - HEENT Hx HEENT Problems: No - RENAL Hx Chronic Kidney Disease: No - ENDOCRINE/METABOLIC Hx Diabetes Mellitus Type 2: Yes - HEMATOLOGICAL/ONCOLOGICAL Hx Blood Disorders: No - INTEGUMENTARY Hx Dermatological Problems: No - MUSCULOSKELETAL/RHEUMATOLOGICAL Hx Musculoskeletal Disorders: No Hx Falls: Yes - GASTROINTESTINAL Hx Gastrointestinal Disorders: No - GENITOURINARY/GYNECOLOGICAL Hx Genitourinary Disorders: No - PSYCHIATRIC Hx Psychophysiologic Disorder: No Hx Substance Use: No - SURGICAL HISTORY Hx Surgeries: No - ANESTHESIA Hx Anesthesia: No Hx Anesthesia Reactions: No Meds Allergies/Adverse Reactions: Allergies Allergy/AdvReac Type Severity Reaction Status Date / Time No Known Allergies Allergy Unverified 07/07/17 12:04 - Medications Medications: Current Medications Acetaminophen (Tylenol 325mg Tab) 650 mg PO Q6 PRN PRN Reason: Pain, moderate (4-7) Enoxaparin Sodium (Lovenox) 40 mg SC DAILY [facility] Last Admin: 07/09/17 09:27 Dose: 40 mg Ceftriaxone Sodium 1 gm/ (Sodium Chloride) 100 mls @ 100 mls/hr IVPB DAILY [facility] PRN Reason: Protocol Last Admin: 07/09/17 09:28 Dose: 100 mls/hr Sodium Chloride (Sodium Chloride 0.9%) 1,000 mls @ 80 mls/hr IV .[id number] [facility] Last Admin: 07/10/17 09:09 Dose: Not Given Insulin Human Regular (Novolin R) 0 unit SC ACHS [facility] PRN Reason: Protocol Last Admin: 07/10/17 07:29 Dose: Not Given Losartan Potassium (Cozaar) 50 mg PO DAILY [facility] Last Admin: 07/09/17 09:28 Dose: 50 mg Physical Exam - Constitutional Appears: Well, Non-toxic, No Acute Distress - Head Exam Head Exam: ATRAUMATIC - Extremities Exam Additional comments: Bilateral lower extremities exam DERM: No open wound noted. No erythema is noted. No sign of infection noted. Elongated, dystrophic, mycotic toenails noted to digits x10. VASC: Palpable DP noted bilaterally 2/4, non-palpable DP noted bilaterally. SERVICE ORDER CLERK less than 3 seconds to all digits noted NEURO: Gross sensation intact ORTHO: No pain on palpation, no pain on passive ROM of B/L ankle, MTPJs. Manual muscle testing 5/5 bilaterally. - Neurological Exam Neurological exam: Alert Results - Vital Signs Recent Vital Signs: Last Vital Signs Temp 97.9 F 07/10/17 07:21 Pulse 81 07/10/17 07:21 Resp 18 07/10/17 07:21 BP 155/66 H 07/10/17 07:21 Pulse Ox 94 L 07/10/17 07:21 - Labs Result Diagrams: 07/10/17 08:41 07/10/17 08:41 Labs: Laboratory Results - last 24 hr 07/09/17 07/09/17 07/09/17 07:19 11:03 14:15 WBC RBC Hgb Hct MCV MCH MCHC RDW Plt Count MPV Neut % (Auto) Lymph % (Auto) [place] % (Auto) Eos % (Auto) Baso % (Auto) Neut # (Auto) Lymph # (Auto) [place] # (Auto) Eos # (Auto) Baso # (Auto) Sodium Potassium Chloride Carbon Dioxide Anion Gap BUN Creatinine Est GFR ( Amer) Est GFR (Non-Af Amer) POC Glucose (mg/dL) 157 H Random Glucose Calcium Total Bilirubin AST ALT Alkaline Phosphatase Total Protein Albumin Globulin Albumin/Globulin Ratio Vitamin B12 396 402 Folate 6.2 4.9 TSH 3rd Generation 1.28 1.68 RPR Titer RPR 07/09/17 07/09/17 07/09/17 14:15 16:31 21:46 WBC RBC Hgb Hct MCV MCH MCHC RDW Plt Count MPV Neut % (Auto) Lymph % (Auto) [place] % (Auto) Eos % (Auto) Baso % (Auto) Neut # (Auto) Lymph # (Auto) [place] # (Auto) Eos # (Auto) Baso # (Auto) Sodium Potassium Chloride Carbon Dioxide Anion Gap BUN Creatinine Est GFR ( Amer) Est GFR (Non-Af Amer) POC Glucose (mg/dL) 169 H 119 H Random Glucose Calcium Total Bilirubin AST ALT Alkaline Phosphatase Total Protein Albumin Globulin Albumin/Globulin Ratio Vitamin B12 Folate TSH 3rd Generation RPR Titer 1:1 RPR Reactive H 07/10/17 07/10/17 07/10/17 06:53 08:41 08:41 WBC 8.2 RBC 4.36 Hgb 12.7 Hct 38.9 MCV 89.1 MCH 29.2 MCHC 32.8 L RDW 14.3 Plt Count 255 MPV 9.4 Neut % (Auto) 71.0 Lymph % (Auto) 17.2 L [place] % (Auto) 9.8 Eos % (Auto) 1.3 Baso % (Auto) 0.7 Neut # (Auto) 5.8 Lymph # (Auto) 1.4 [place] # (Auto) 0.8 Eos # (Auto) 0.1 Baso # (Auto) 0.1 Sodium 140 Potassium 3.8 Chloride 103 Carbon Dioxide 24 Anion Gap 17 BUN 5 L Creatinine 0.5 L Est GFR ( Amer) > 60 Est GFR (Non-Af Amer) > 60 POC Glucose (mg/dL) 94 Random Glucose 101 Calcium 8.3 L Total Bilirubin 0.6 AST 19 ALT 20 Alkaline Phosphatase 69 Total Protein 7.0 Albumin 3.4 L Globulin 3.7 Albumin/Globulin Ratio 0.9 L Vitamin B12 Folate TSH 3rd Generation RPR Titer RPR Assessment & Plan - Assessment and Plan (Free Text) Assessment: 76 year old diabetic female patient presents with elongated, dystrophic, mycotic toenails x10 Plan: Patient was seen, evaluated and treated with all questions and concerns addressed labs and vitals reviewed discussed in detail with Dr. Van Elongated, dystrophic toenails were sharply cut with a large nail nipper up to level of normal length without any incident x10 Patient is stable from podiatry standpoint Podiatry signing off Please re-consult podiatry if any other lower extremity problems occur, thank you
[2017-07-10] MEDS: Enoxaparin 40 mg Syringe SC SCH (11:15)
[2017-07-10 15:27] VITALS: RESP 20
--- NOTE | 2017-07-10 23:21 | PN ---
DATE: SUBJECTIVE: The patient is seen. The patient is still confused. Seen with family in the 4 bedded observation room. The patient in still unsure she is at home or in the hospital, but no behavioral problems. The patient, however, is wearing mittens as she is trying to pull her IV line. The patient is on IV antibiotics for urinary tract infection. Confused, but redirectable. PHYSICAL EXAMINATION VITAL SIGNS: Temperature is 98.2, pulse 80, blood pressure 122/70, respirations 20, and oxygen saturation is 95%. Review of her labs, her blood sugar random is 101. REVIEW OF SYSTEMS: GENERAL: The patient alert, but still confused., but mental status improving. She still needs constant monitoring, seen in the observation room. SKIN: No diaphoresis. HEENT: No headache or dizziness. NECK: Supple. RESPIRATORY: No dyspnea. CARDIOVASCULAR: No chest pain. GASTROINTESTINAL: Appetite is variable. No nausea or vomiting. EXTREMITIES: The patient is wearing mittens as she is trying to pull her IV line. The patient is moving extremities. NEURO: Alert, often appears to have confusion. GENITOURINARY: No dysuria. MENTAL STATUS EXAMINATION: An elderly female who looks stated age, oriented only to person for now. Still confused, but doing better. Speech is spontaneous. Affect is reactive. Mood is dysphoric. Thought process, confused. Thought content, no overt psychosis. No suicidal or homicidal ideation. Attention and memory still limited. Insight and judgment limited. Impulse control is fair at this time. IMPRESSION: Delirium, metabolic encephalopathy secondary to urinary tract infection. PLAN AND RECOMMENDATIONS: The patient is seen, meds reviewed. We will keep the patient in antibiotics, off psych meds for now. The patient is confused, but re directable. Family is expressing desire that the patient may go for subacute rehab, most probably to [facility] which is a network rehab with her insurance. We will continue treatment plan as outlined. Continue antibiotics as ordered. The patient is confused, but re directable. Her mental status seems to improving. For her urinary tract infection, the patient was taking earlier ceftriaxone. We will discontinue it today. Huey Simmons MD [facility] # [id number]
--- NOTE | 2017-07-10 23:37 | CP.PCM.PN ---
Subjective - Date & Time of Evaluation Date of Evaluation: 07/10/17 Time of Evaluation: 18:00 - Subjective Subjective: FOR VENOUS DOPPLER, SHE HAS DEMENTIA, SHE IS FOOR VENOUS DOPPLER Objective - Vital Signs/Intake and Output Vital Signs (last 24 hours): Temp Pulse Resp BP Pulse Ox 98.2 F 80 20 122/70 95 07/10/17 15:23 07/10/17 15:23 07/10/17 15:23 07/10/17 15:23 07/10/17 15:23 Intake and Output: 07/10/17 07/11/17 18:59 06:59 Intake Total 890 Output Total 450 Balance 440 - Medications Medications: Current Medications Acetaminophen (Tylenol 325mg Tab) 650 mg PO Q6 PRN PRN Reason: Pain, moderate (4-7) Enoxaparin Sodium (Lovenox) 40 mg SC DAILY [facility] Last Admin: 07/10/17 11:15 Dose: 40 mg Insulin Human Regular (Novolin R) 0 unit SC ACHS [facility] PRN Reason: Protocol Last Admin: 07/10/17 22:51 Dose: Not Given Lidocaine (Lidoderm) 1 ea TD DAILY [facility] Losartan Potassium (Cozaar) 50 mg PO DAILY [facility] Last Admin: 07/10/17 11:14 Dose: 50 mg - Labs Labs: 07/10/17 08:41 07/10/17 08:41 PT 12.6 SECONDS (9.7-12.2) H 07/07/17 13:18 INR 1.1 07/07/17 13:18 APTT 38 SECONDS (21-34) H 07/07/17 13:18 - Constitutional Appears: No Acute Distress, Chronically Ill - Head Exam Head Exam: ATRAUMATIC, NORMAL INSPECTION, NORMOCEPHALIC - Eye Exam Eye Exam: EOMI, Normal appearance, PERRL Pupil Exam: NORMAL ACCOMODATION, PERRL - Respiratory Exam Respiratory Exam: Clear to Ausculation Bilateral, NORMAL BREATHING PATTERN - Cardiovascular Exam Cardiovascular Exam: REGULAR RHYTHM, +S1, +S2. absent: Murmur - GI/Abdominal Exam GI & Abdominal Exam: Soft, Normal Bowel Sounds. absent: Tenderness Assessment and Plan (1) Diabetes Status: Acute (2) HTN (hypertension) Status: Acute (3) Altered mental status Status: Acute (4) Frequent falls Status: Acute
[2017-07-11] MEDS: Sodium Chloride 0.9% 1,000 ML IV SCH (05:19)
[2017-07-11] MEDS: (Novolin R) Insulin Human Regular 100 units/ml vial SC SCH ×2 (07:28→11:41)
--- NOTE | 2017-07-11 08:50 | CON ---
DATE: HISTORY OF PRESENT ILLNESS: The patient was admitted on 07/07/[address] Bryn Conteh. The patient is admitted with a diagnosis of altered mental status and urinary tract infection. According to the patient's granddaughter, the patient sustained a fall and has been complaining of pain in both knees. The patient was seen by me in the past with severe degenerative joint disease in both knees. She also received some intraarticular injections for steroid. PHYSICAL EXAMINATION: Examination revealed a patient who appears to have altered mental status and valgus alignment of both knees noted; 1+ swelling of the left knee and 2+ swelling of the right knee noted. Evidence of tricompartmental arthritis noted bilaterally. Patellofemoral crepitus and tenderness is noted. Range of motion of knees are difficult to assess as the patient is noncooperative. She has some calf tenderness. DIAGNOSTIC DATA: X-rays of both knees revealed degenerative joint disease of both knees, more pronounced on the right side with severe valgus deformity. Also seen are some patellar changes. The patient also had a CAT scan done to rule out any stress fractures. CAT scan of the right knee is negative for stress fractures. CAT scan reported degenerative joint disease. The patient also had a venous Doppler's done which is negative for deep vein thrombosis. ASSESSMENT AND PLAN: Currently, the treatment is symptomatic. We will start physical therapy, and we will follow the patient. DIAGNOSIS: Degenerative joint disease of both knees tricompartmental. Claudio Jean MD
[2017-07-11 08:51] LABS: BASO # 0.1 K/uL (0.0-0.2); BASO % 1.1 % (0.0-2.0); EOS # 0.1 K/uL (0.0-0.7); EOS % 1.9 % (0.0-4.0); HEMOGLOBIN 12.1 g/dL (11.0-16.0); LYMPH # 1.5 K/uL (1.0-4.3); LYMPH % 20.8 % (20.0-40.0); MEAN CELL VOLUME 87.9 fL (81.0-99.0); MEAN CORPUSCULAR HEMOGLOBIN 29.3 pg (27.0-31.0); MEAN CORPUSCULAR HGB CONC 33.3 g/dL (33.0-37.0); MEAN PLATELET VOLUME 9.5 fL (7.2-11.7); MONO # 0.8 K/uL (0.0-0.8); MONO % 10.9 % (0.0-10.0); NEUT # 4.8 K/uL (1.8-7.0); NEUT % 65.3 % (50.0-75.0); RBC 4.13 Mil/uL (3.80-5.20); RED CELL DISTRIBUTION WIDTH 14.4 % (11.5-14.5); WHITE BLOOD COUNT 7.4 K/uL (4.8-10.8)
[2017-07-11 09:01] LABS: ALB/GLOB RATIO 0.9 (1.0-2.1); ALBUMIN 3.4 g/dL (3.5-5.0); ALT/SGPT 15 U/L (9-52); AST/SGOT 22 U/L (14-36); BLOOD UREA NITROGEN 5 mg/dL (7-17); CALCIUM 8.4 mg/dl (8.6-10.4); GFR AFRICAN-AMERICAN > 60; GFR NON-AFRICAN AMERICAN > 60
[2017-07-11] MEDS ORDERED: Lidocaine 5% Patch TD SCH (10:00)
[2017-07-11] MEDS: Enoxaparin 40 mg Syringe SC SCH (10:12)
--- NOTE | 2017-07-11 10:19 | VASCLAB ---
PROCEDURE: Lower Extremity Venous Duplex Exam. HISTORY: calf pain, r/o DVT PRIORS: None. TECHNIQUE: Bilateral common femoral, femoral, popliteal and posterior tibial, peroneal and great saphenous veins were evaluated. Flow was assessed with color Doppler, compressibility, assessment of phasic flow and augmentation response. Report prepared by Dante Clay, DALILA, RVT FINDINGS: RIGHT: 1. Common Femoral Vein: 1.1. Compressibility - Fully compressible: Thrombus - None : Flow - Phasic: Augmentation -Normal: Reflux - None. 2. Femoral Vein: 2.1. Compressibility - Fully compressible: Thrombus - None : Flow - Phasic: Augmentation -Normal: Reflux - None. 3. Popliteal Vein: 3.1. Compressibility - Fully compressible: Thrombus - None : Flow - Phasic: Augmentation -Normal: Reflux - None. 4. Posterior Tibial Vein: 4.1. Compressibility - Fully compressible: Thrombus - None: Flow - Phasic: Augmentation -Normal: Reflux - None. 5. Peroneal Vein: 5.1. Compressibility - Fully compressible: Thrombus - None: Flow - Phasic: Augmentation -Normal: Reflux - None. 6. Great Saphenous Vein: 6.1. Compressibility - Fully compressible: Thrombus - None: Flow - Phasic: Augmentation - Normal: Reflux - None. LEFT: 1. Common Femoral Vein: 1.1. Compressibility - Fully compressible: Thrombus - None: Flow - Phasic: Augmentation -Normal: Reflux - None. 2. Femoral Vein: 2.1. Compressibility - Fully compressible: Thrombus - None: Flow - Phasic: Augmentation -Normal: Reflux - None. 3. Popliteal Vein: 3.1. Compressibility - Fully compressible: Thrombus - None : Flow - Phasic: Augmentation -Normal: Reflux - None. 4. Posterior Tibial Vein: 4.1. Compressibility - Fully compressible: Thrombus - None: Flow - Phasic: Augmentation -Normal: Reflux - None. 5. Peroneal Vein: 5.1. Compressibility - Fully compressible: Thrombus - None: Flow - Phasic: Augmentation -Normal: Reflux - None. 6. Great Saphenous Vein: 6.1. Compressibility - Fully compressible: Thrombus - None: Flow - Phasic: Augmentation - Normal: Reflux - None. OTHER FINDINGS: Right: None significant. Left: None significant. IMPRESSION: Right: No evidence of deep or superficial vein thrombosis of the right lower extremity. Normal valve function noted of the right side. Left: No evidence of deep or superficial vein thrombosis of the left lower extremity. Normal valve function noted of the left side.
--- NOTE | 2017-07-11 10:22 | CP.PCM.PN ---
Subjective - Date & Time of Evaluation Date of Evaluation: 07/11/17 Time of Evaluation: 10:17 - Subjective Subjective: Patient calm today. Follows most commands. Review of Systems - Review of Systems Systems not reviewed;Unavailable: Dementia Objective - Vital Signs/Intake and Output Vital Signs (last 24 hours): Temp Pulse Resp BP Pulse Ox 98 F 81 20 143/74 97 07/10/17 23:54 07/10/17 23:54 07/10/17 23:54 07/10/17 23:54 07/10/17 23:54 Intake and Output: 07/11/17 07/11/17 06:59 18:59 Intake Total 890 Output Total 1250 Balance -360 - Medications Medications: Current Medications Acetaminophen (Tylenol 325mg Tab) 650 mg PO Q6 PRN PRN Reason: Pain, moderate (4-7) Enoxaparin Sodium (Lovenox) 40 mg SC DAILY [facility] Last Admin: 07/11/17 10:12 Dose: 40 mg Insulin Human Regular (Novolin R) 0 unit SC ACHS PAOLA PRN Reason: Protocol Last Admin: 07/11/17 07:28 Dose: Not Given Lidocaine (Lidoderm) 1 ea TD DAILY [facility] Last Admin: 07/11/17 10:12 Dose: 1 ea Losartan Potassium (Cozaar) 50 mg PO DAILY [facility] Last Admin: 07/11/17 10:12 Dose: 50 mg - Labs Labs: 07/11/17 08:36 07/11/17 08:36 PT 12.6 SECONDS (9.7-12.2) H 07/07/17 13:18 INR 1.1 07/07/17 13:18 APTT 38 SECONDS (21-34) H 07/07/17 13:18 - Constitutional Appears: Well, No Acute Distress - Head Exam Head Exam: ATRAUMATIC - Respiratory Exam Respiratory Exam: NORMAL BREATHING PATTERN - Extremities Exam Extremities Exam: Joint Swelling Additional comments: R knee effusion, stable. No erythema. Tolerating knee PROM better than last exam. Knee minimally warm, consistent with OA. Calves soft NT today, neg homans Dopplers prelim neg DVT - Neurological Exam Neurological Exam: Awake Neuro motor strength exam: Right Lower Extremity: 5 (ankle/toes) - Psychiatric Exam Additional comments: calm - Skin Skin Exam: Dry, Intact, Normal Color, Warm Assessment and Plan (1) Primary osteoarthritis of right knee Assessment & Plan: Right knee OA exacerbation PT/OT VTE proph dopplers negative venodynes ortho stable pt can f/u in office Dr. Jean call for appointment Status: Acute (2) Degenerative arthritis of left knee Status: Acute
--- NOTE | 2017-07-11 15:05 | CP.PCM.PN ---
Subjective - Date & Time of Evaluation Date of Evaluation: 07/11/17 Time of Evaluation: 15:05 - Subjective Subjective: PATIENT WAS ADMITTED FOR AMS AND UTI [id number] DENIES ANY CHEST PAIN OR SOB NO SIGN OF DISTRESS NOTED Objective - Vital Signs/Intake and Output Vital Signs (last 24 hours): Temp Pulse Resp BP Pulse Ox 98.1 F 77 20 157/62 H 98 07/11/17 07:10 07/11/17 07:10 07/11/17 07:10 07/11/17 07:10 07/11/17 07:10 Intake and Output: 07/11/17 07/11/17 06:59 18:59 Intake Total 890 Output Total 1250 Balance -360 - Medications Medications: Current Medications Acetaminophen (Tylenol 325mg Tab) 650 mg PO Q6 PRN PRN Reason: Pain, moderate (4-7) Enoxaparin Sodium (Lovenox) 40 mg SC DAILY [facility] Last Admin: 07/11/17 10:12 Dose: 40 mg Insulin Human Regular (Novolin R) 0 unit SC ACHS PAOLA PRN Reason: Protocol Last Admin: 07/11/17 11:41 Dose: Not Given Lidocaine (Lidoderm) 1 ea TD DAILY [facility] Last Admin: 07/11/17 10:12 Dose: 1 ea Losartan Potassium (Cozaar) 50 mg PO DAILY [facility] Last Admin: 07/11/17 10:12 Dose: 50 mg - Labs Labs: 07/11/17 08:36 07/11/17 08:36 PT 12.6 SECONDS (9.7-12.2) H 07/07/17 13:18 INR 1.1 07/07/17 13:18 APTT 38 SECONDS (21-34) H 07/07/17 13:18 Assessment and Plan - Assessment and Plan (Free Text) Assessment: PATIENT SEEN AND EXAMINED AT THE BEDSIDE LUNG SOUND CLEAR MRI OF THE BRAIN WAS NEG LOWER EXT XRAY SHOW ADV OSTEOARTHRITIS DUPLEX DOPPER NEG FOR DVT DISCUSS WITH DR DURAN AND DR BARRERA WHO CELAR PATIENT FOR DC PLACE UNDER THE SERVICE DR DURAN AT [facility] ---CALL DR DURAN FOR ADMITTING ORDERS FOLLOW UP [place] IN 1-2 WEEK AT HIS OFFICE ---CALL FOR APPOINTMENT FOLLOW UP WITH DR SHELL AT HIS OFFICE 1-2 WEEK S ---CALL FOR APPOINTMENT CONTINUE HOME MEDICATION USUAL IF ANY NEW PRESCRIPTION GIVEN TYLENOL 650 MG BY MOUTH EVERY 6 HOURS NEEDED FOR PAIN ACTIVITY TOLERATED AND PER FACILITY PROTOCOL CALL DR DURAN FOR FURTHER ORDERS DISCUSS WITH PATIENT WHO AGREE AND VERBALIZED UNDERSTANDING
[2017-07-11 16:10] VITALS: BP 114/60; PULSE 80; TEMP 97.6; O2SAT 96
--- NOTE | 2017-07-11 21:04 | PN ---
DATE: SUBJECTIVE: The patient is seen in a four-bedded room with her granddaughter. The patient will be going today to [facility] for subacute rehab. Continues to have off and on periods of confusion, but no behavioral problems. The patient is not taking her psych meds. She is currently being treated for UTI. VITAL SIGNS: Temperature is 97.6, pulse rate is 80, blood pressure 114/60, respirations 20, oxygen sats 96% on room air. REVIEW OF SYSTEMS: GENERAL: The patient is alert, but with periods of confusion. She thinks she is at home, but no behavioral problems. The patient still has mittens, seen with her granddaughter in her room. SKIN: No diaphoresis. HEENT: No headache or dizziness. NECK: Supple. RESPIRATORY: No dyspnea. CARDIOVASCULAR: No chest pain. GASTROINTESTINAL: Patient is eating. EXTREMITIES: The patient is wearing mittens. MUSCULOSKELETAL: Feels weak. NEURO: Alert, with periods of confusion. GENITOURINARY: No dysuria. MENTAL STATUS EXAMINATION: An elderly female, who looks stated age, 81 years old, about 5 feet 5 inches, weight is 144 pounds, oriented x1. The patient is not sure if she is in the hospital. Affect is reactive. Mood is dysphoric. Thought process confused. Thought content, no overt psychosis. No suicidal or homicidal ideations. Attention and memory seem to be limited. Insight and judgement limited. Impulse control is fair at this time. IMPRESSION: Delirium, metabolic encephalopathy secondary to urinary tract infection, improving. PLAN AND RECOMMENDATION: Patient seen, meds reviewed. The patient is going to [facility] today for subacute rehab. The patient does not need any psych meds. The patient has delirium, and her change in mental status will slowly resolve with the resolution of her urinary tract infection. Huey Simmons MD
--- NOTE | 2017-07-11 23:44 | CP.PCM.DIS ---
Provider - Provider Date of Admission: 07/07/17 16:38 Attending physician: Bryn Conteh MD Diagnosis - Discharge Diagnosis (1) Diabetes Status: Acute (2) HTN (hypertension) Status: Acute (3) Altered mental status Status: Acute (4) Frequent falls Status: Acute Hospital Course - Lab Results Lab Results: Micro Results 07/07/17 14:07 Urine Urine Culture - Final No Growth (<1,000 CFU/ML) Most Recent Lab Values WBC 7.4 K/uL (4.8-10.8) 07/11/17 08:36 RBC 4.13 Mil/uL (3.80-5.20) 07/11/17 08:36 Hgb 12.1 g/dL (11.0-16.0) 07/11/17 08:36 Hct 36.3 % (34.0-47.0) 07/11/17 08:36 MCV 87.9 fL (81.0-99.0) 07/11/17 08:36 MCH 29.3 pg (27.0-31.0) 07/11/17 08:36 MCHC 33.3 g/dL (33.0-37.0) 07/11/17 08:36 RDW 14.4 % (11.5-14.5) 07/11/17 08:36 Plt Count 266 K/uL (130-400) 07/11/17 08:36 MPV 9.5 fL (7.2-11.7) 07/11/17 08:36 Neut % (Auto) 65.3 % (50.0-75.0) 07/11/17 08:36 Lymph % (Auto) 20.8 % (20.0-40.0) 07/11/17 08:36 Childress % (Auto) 10.9 % (0.0-10.0) H 07/11/17 08:36 Eos % (Auto) 1.9 % (0.0-4.0) 07/11/17 08:36 Baso % (Auto) 1.1 % (0.0-2.0) 07/11/17 08:36 Neut # (Auto) 4.8 K/uL (1.8-7.0) 07/11/17 08:36 Lymph # (Auto) 1.5 K/uL (1.0-4.3) 07/11/17 08:36 Childress # (Auto) 0.8 K/uL (0.0-0.8) 07/11/17 08:36 Eos # (Auto) 0.1 K/uL (0.0-0.7) 07/11/17 08:36 Baso # (Auto) 0.1 K/uL (0.0-0.2) 07/11/17 08:36 PT 12.6 SECONDS (9.7-12.2) H 07/07/17 13:18 INR 1.1 07/07/17 13:18 APTT 38 SECONDS (21-34) H 07/07/17 13:18 Sodium 140 mmol/L (132-148) 07/11/17 08:36 Potassium 4.0 mmol/L (3.6-5.2) 07/11/17 08:36 Chloride 104 mmol/L (98-107) 07/11/17 08:36 Carbon Dioxide 25 mmol/L (22-30) 07/11/17 08:36 Anion Gap 16 (10-20) 07/11/17 08:36 BUN 5 mg/dL (7-17) L 07/11/17 08:36 Creatinine 0.5 mg/dL (0.7-1.2) L 07/11/17 08:36 Est GFR ( Amer) > 60 07/11/17 08:36 Est GFR (Non-Af Amer) > 60 07/11/17 08:36 POC Glucose (mg/dL) 118 mg/dL (65-110) H 07/11/17 16:40 Random Glucose 109 mg/dL (65-105) H 07/11/17 08:36 Calcium 8.4 mg/dl (8.6-10.4) L 07/11/17 08:36 Magnesium 1.9 mg/dL (1.6-2.3) 07/07/17 13:12 Total Bilirubin 0.7 mg/dL (0.2-1.3) 07/11/17 08:36 AST 22 U/L (14-36) 07/11/17 08:36 ALT 15 U/L (9-52) 07/11/17 08:36 Alkaline Phosphatase 69 U/L (38-126) 07/11/17 08:36 Total Creatine Kinase 92 U/L (30-135) 07/07/17 13:12 CK-MB (Mass) 1.17 ng/mL (0.0-3.38) 07/07/17 13:12 Troponin I < 0.0120 ng/mL (0.00-0.120) 07/07/17 13:12 NT-Pro-B Natriuret Pep 179 pg/mL (0-900) 07/07/17 13:12 Total Protein 7.1 g/dL (6.3-8.3) 07/11/17 08:36 Albumin 3.4 g/dL (3.5-5.0) L 07/11/17 08:36 Globulin 3.7 gm/dL (2.2-3.9) 07/11/17 08:36 Albumin/Globulin Ratio 0.9 (1.0-2.1) L 07/11/17 08:36 Vitamin B12 402 pg/mL (239-931) 07/09/17 14:15 Folate 4.9 ng/mL 07/09/17 14:15 TSH 3rd Generation 1.68 mIU/L (0.46-4.68) 07/09/17 14:15 Urine Color Yellow (YELLOW) 07/07/17 13:15 Urine Clarity Turbid (Clear) 07/07/17 13:15 Urine pH 5.0 (5.0-8.0) 07/07/17 13:15 Ur Specific [place] 1.017 (1.003-1.030) 07/07/17 13:15 Urine Protein 1+ mg/dL (NEGATIVE) H 07/07/17 13:15 Urine Glucose (UA) Normal mg/dL (Normal) 07/07/17 13:15 Urine Ketones Negative mg/dL (NEGATIVE) 07/07/17 13:15 Urine Blood 2+ (NEGATIVE) H 07/07/17 13:15 Urine Nitrate Negative (NEGATIVE) 07/07/17 13:15 Urine Bilirubin Negative (NEGATIVE) 07/07/17 13:15 Urine Urobilinogen Normal mg/dL (0.2-1.0) 07/07/17 13:15 Ur Leukocyte Esterase 3+ Deo/uL (Negative) H 07/07/17 13:15 Urine WBC (Auto) 43 /hpf (0-5) H 07/07/17 13:15 Urine RBC (Auto) 15 /hpf (0-3) H 07/07/17 13:15 Ur Squamous Epith Cells 94 /hpf (0-5) H 07/07/17 13:15 Urine Bacteria Mod (<OCC) H 07/07/17 13:15 RPR Titer 1:1 (NONREACTIVE) 07/09/17 14:15 RPR Reactive (NONREACTIVE) H 07/09/17 14:15 Discharge Exam - Head Exam Head Exam: ATRAUMATIC Discharge Plan - Follow Up Plan Condition: FAIR Disposition: HOME/ ROUTINE Instructions: High Blood Pressure (DC), Osteoarthritis (DC), Altered Mental Status (DC), Diabetes Type 2 (DC), Urinary Tract Infection in Women (DC) Additional Instructions: PLACE UNDER THE SERVICE DR CONTEH AT [facility] ---CALL DR CONTEH FOR ADMITTING ORDERS FOLLOW UP [place] IN 1-2 WEEK AT HIS OFFICE ---CALL FOR APPOINTMENT FOLLOW UP WITH DR SHELL AT HIS OFFICE 1-2 WEEK S ---CALL FOR APPOINTMENT CONTINUE HOME MEDICATION USUAL IF ANY NEW PRESCRIPTION GIVEN TYLENOL 650 MG BY MOUTH EVERY 6 HOURS NEEDED FOR PAIN ACTIVITY TOLERATED AND PER FACILITY PROTOCOL CALL DR CONTEH FOR FURTHER ORDERS Referrals: Huey Shukla MD [Staff Provider] - Bryn Conteh MD [Staff Provider] - Claudio Shell MD [Staff Provider] - Jared Van DPM [Staff Provider] -
== END 2017-07-11 17:15 | disposition home or self-care (01) | DRG 689 ==
LOC: C.ER 11:45 → C.9E 16:38 → C.5S 19:25
PROVIDERS: ADMIT Internal Medicine; ATTEND Internal Medicine
DX: N39.0 Urinary tract infection, site not specified (principal); G93.41 Metabolic encephalopathy; B49 Unspecified mycosis; F05 Delirium due to known physiological condition; E11.9 Type 2 diabetes mellitus without complications; F03.90 Unspecified dementia, unspecified severity, without behavioral disturbance, psychotic disturbance, mood disturbance, and anxiety; F17.210 Nicotine dependence, cigarettes, uncomplicated; R29.6 Repeated falls; E78.5 Hyperlipidemia, unspecified; I10 Essential (primary) hypertension; Z91.81 History of falling; M17.0 Bilateral primary osteoarthritis of knee; Z79.4 Long term (current) use of insulin

== ENCOUNTER 2017-12-22 10:59 | Inpatient (IN) | payer MEDICARE ==
[2017-12-22 12:09] LABS: BASO # 0.1 K/uL (0.0-0.2); BASO % 1.2 % (0.0-2.0); EOS # 0.4 K/uL (0.0-0.7); EOS % 6.5 % (0.0-4.0); HEMOGLOBIN 11.1 g/dL (11.0-16.0); LYMPH # 1.5 K/uL (1.0-4.3); LYMPH % 21.3 % (20.0-40.0); MEAN CELL VOLUME 86.9 fL (81.0-99.0); MEAN CORPUSCULAR HEMOGLOBIN 29.2 pg (27.0-31.0); MEAN CORPUSCULAR HGB CONC 33.6 g/dL (33.0-37.0); MEAN PLATELET VOLUME 9.7 fL (7.2-11.7); MONO # 0.5 K/uL (0.0-0.8); MONO % 7.1 % (0.0-10.0); NEUT # 4.4 K/uL (1.8-7.0); NEUT % 63.9 % (50.0-75.0); RBC 3.79 Mil/uL (3.80-5.20); RED CELL DISTRIBUTION WIDTH 15.8 % (11.5-14.5); WHITE BLOOD COUNT 6.9 K/uL (4.8-10.8)
[2017-12-22 12:23] LABS: ALB/GLOB RATIO 1.3 (1.0-2.1); ALBUMIN 4.3 g/dL (3.5-5.0); CALCIUM 9.4 mg/dl (8.6-10.4)
[2017-12-22] MEDS ORDERED: Sodium Chloride 0.9% 500 ML IV ONE ×2 (12:44→13:08)
[2017-12-22 12:54] LABS: SQUAMOUS EPITHIAL 1 /hpf (0-5); URINE BACTERIA OCC (<OCC); URINE BILIRUBIN NEGATIVE (NEGATIVE); URINE BLOOD NEGATIVE (NEGATIVE); URINE CLARITY Hazy (Clear); URINE COLOR Yellow (YELLOW); URINE GLUCOSE (UA) NORMAL (Normal); URINE LEUKOCYTE ESTERASE NEG Leu/uL (Negative); URINE PROTEIN NEGATIVE (NEGATIVE); URINE UROBILINOGEN NORMAL mg/dL (0.2-1.0)
--- NOTE | 2017-12-22 13:10 | C.PDOC ---
History Of Present Illness 82 year old female brought into the emergency department by her family for evaluation of generalized weakness and decreased PO intake. As per her daughter , the patient has not been eating, drinking, or putting out urine for several days. The patient has no physical complaints at this time. Time Seen by Provider: 12/22/17 11:14 Chief Complaint (Nursing): Female Genitourinary History Per: Patient, EMS, Family Onset/Duration Of Symptoms: Days Current Symptoms Are (Timing): Still Present Severity: Mild Past Medical History Reviewed: Historical Data, Nursing Documentation, Vital Signs Vital Signs: Last Vital Signs Temp 98.1 F 12/25/17 07:00 Pulse 71 12/25/17 07:00 Resp 20 12/25/17 07:00 BP 110/73 12/25/17 07:00 Pulse Ox 100 12/25/17 07:00 - Medical History PMH: HTN Surgical History: No Surg Hx Family History: States: No Known Family Hx - Social History Hx Alcohol Use: No Hx Substance Use: No - Immunization History Hx Tetanus Toxoid Vaccination: Yes Hx Influenza Vaccination: No Hx Pneumococcal Vaccination: No Review Of Systems Constitutional: Positive for: Weakness. Negative for: Fever Cardiovascular: Negative for: Chest Pain Respiratory: Negative for: Cough, Shortness of Breath Gastrointestinal: Positive for: Other (decreased PO intake). Negative for: Nausea, Vomiting, Abdominal Pain, Diarrhea Genitourinary: Positive for: Other (decreased urinary output). Negative for: Dysuria, Hematuria Skin: Negative for: Rash Neurological: Negative for: Weakness, Numbness, Headache, Dizziness Physical Exam - Physical Exam Appears: Well, Non-toxic, No Acute Distress Skin: Normal Color, Warm, Dry, No Rash Head: Atraumatic, Normacephalic Eye(s): bilateral: Normal Inspection, PERRL, EOMI Oral Mucosa: Dry Neck: Normal, Supple Cardiovascular: Rhythm Regular Respiratory: Normal Breath Sounds, No Rales, No Rhonchi, No Wheezing Gastrointestinal/Abdominal: Bowel Sounds, Soft, Tenderness (diffuse TTP, greatest at suprapubic and periumbilical areas), No Guarding, No Rebound, Other ((-) McBurney's, (-) Hernandez's) Back: No CVA Tenderness Extremity: Normal ROM, No Pedal Edema, No Calf Tenderness, No Deformity Pulses: Left Dorsalis Pedis: Normal, Right Dorsalis Pedis: Normal Neurological/Psych: Normal Cranial Nerves, Other (awake, alert, mildly confused , moving all 4 extremities spontaneously) ED Course And Treatment - Laboratory Results Result Diagrams: 12/25/17 11:31 12/25/17 11:31 ECG: Interpreted By Me, Viewed By Me ECG Rhythm: Sinus Rhythm ECG Interpretation: Normal Interpretation Of ECG: NSR at 61bpm, normal axis, no acute st-t wave changes O2 Sat by Pulse Oximetry: 95 (RA) Pulse Ox Interpretation: Normal - CT Scan/US CT ABD/PELVIS Other Rad Studies (CT/US): Read By Radiologist, Radiology Report Reviewed CT/US Interpretation: Accession No. : [id number]. Patient Name / ID : PERLITA HUGHES / [id number]. Exam Date : 12/22/2017 13:39:08 ( Approved ). Study Comment : Sex / Age : F / 82Y. Creator : Josse Ramirez MD. Dictator : Josse Ramirez MD. Finish Patcher : Fire Behavior Analyst : Josse Ramirez MD. Approver2 : Report Date : 12/22/2017 13:51:33. My Comment : . Date of service: 12/22/2017. PROCEDURE: CT Abdomen and Pelvis without intravenous contrast. HISTORY: diffuse abd pain, suprapubic. COMPARISON: None. TECHNIQUE: Contiguous images were obtained from the domes of the diaphragms to the upper thighs without the administration of intravenous contrast. Oral contrast was not administered. Radiation dose: Total exam DLP = 285 mGy-cm. This CT exam was performed using one or more of the following dose reduction techniques: Automated exposure control, adjustment of the mA and/ or kV according to patient size, and/or use of iterative reconstruction technique. FINDINGS: LOWER THORAX: Unremarkable. LIVER: 2.8 cm right hepatic lobe cyst. No gross lesion or ductal dilatation. GALLBLADDER AND BILE DUCTS: Unremarkable. PANCREAS: Unremarkable. No gross lesion or ductal dilatation. SPLEEN: Unremarkable. ADRENALS: Unremarkable. No mass. KIDNEYS AND URETERS: Punctate nonobstructive right interpolar calculus. Right extrarenal pelvis. 8 x 5 mm left mid/lower pole nonobstructive calculus. No hydronephrosis. No solid mass. VASCULATURE: Calcific atherosclerosis. No aortic aneurysm. BOWEL: Mild colonic diverticulosis. No obstruction. No gross mural thickening. APPENDIX: No findings to suggest acute appendicitis. PERITONEUM: Unremarkable. No free fluid. No free air. LYMPH NODES: Unremarkable. No enlarged lymph nodes. BLADDER: Unremarkable. REPRODUCTIVE: Unremarkable. BONES: Degenerative changes. Mild T12, L1 and L2 compression deformities. OTHER FINDINGS: None. IMPRESSION: Bilateral nephrolithiasis. No evidence of obstructive uropathy or evidence of recently passed genitourinary calculus. Additional findings as above. Progress Note: Blood work, UA, EKG, CT abd/pelvis ordered and reviewed. Patient given IV NS bolus. Bun/Cr elevated as compared to prior baseline, likely due to dehydration. - Physician Consult Information Physician Contacted: Bryn Conteh Outcome Of Conversation: Discussed patient with PMD, agrees with admission for acute renal failure, dehydration, decreased PO intake, kidney stones. Disposition - Disposition Disposition: HOSPITALIZED Disposition Time: 14:08 Condition: STABLE - Clinical Impression Clinical Impression: Dehydration, ARF (acute renal failure), Kidney stones, Decreased oral intake - Scribe Statement The provider has reviewed the documentation as recorded by the Scribe (Miles Swansonqvi) Provider Attestation: All medical record entries made by the Scribe were at my direction and personally dictated by me. I have reviewed the chart and agree that the record accurately reflects my personal performance of the history, physical exam, medical decision making, and the department course for this patient. I have also personally directed, reviewed, and agree with the discharge instructions and disposition. Decision To Admit - Pt Status Changed To: Hospital Disposition Of: Inpatient - Admit Certification Admit to Inpatient:: After my assessment, the patient will require hospitalization for at least two midnights. This is because of the severity of symptoms shown, intensity of services needed, and/or the medical risk in this patient being treated as an outpatient. - InPatient: Physician Admission Certification: I certify that this patient requires 2 or more midnights of care for the following reason:: see notes - . Bed Request Type: Regular Admitting Physician: Bryn Conteh Patient Diagnosis: Dehydration, ARF (acute renal failure), Decreased oral intake, Kidney stones
--- NOTE | 2017-12-22 13:53 | CT ---
Date of service: 12/22/2017 PROCEDURE: CT Abdomen and Pelvis without intravenous contrast HISTORY: diffuse abd pain, suprapubic COMPARISON: None. TECHNIQUE: Contiguous images were obtained from the domes of the diaphragms to the upper thighs without the administration of intravenous contrast. Oral contrast was not administered. Radiation dose: Total exam DLP = 285 mGy-cm. This CT exam was performed using one or more of the following dose reduction techniques: Automated exposure control, adjustment of the mA and/or kV according to patient size, and/or use of iterative reconstruction technique. FINDINGS: LOWER THORAX: Unremarkable. LIVER: 2.8 cm right hepatic lobe cyst. No gross lesion or ductal dilatation. GALLBLADDER AND BILE DUCTS: Unremarkable. PANCREAS: Unremarkable. No gross lesion or ductal dilatation. SPLEEN: Unremarkable. ADRENALS: Unremarkable. No mass. KIDNEYS AND URETERS: Punctate nonobstructive right interpolar calculus. Right extrarenal pelvis. 8 x 5 mm left mid/lower pole nonobstructive calculus. No hydronephrosis. No solid mass. VASCULATURE: Calcific atherosclerosis. No aortic aneurysm. BOWEL: Mild colonic diverticulosis. No obstruction. No gross mural thickening. APPENDIX: No findings to suggest acute appendicitis. PERITONEUM: Unremarkable. No free fluid. No free air. LYMPH NODES: Unremarkable. No enlarged lymph nodes. BLADDER: Unremarkable. REPRODUCTIVE: Unremarkable. BONES: Degenerative changes. Mild T12, L1 and L2 compression deformities. OTHER FINDINGS: None. IMPRESSION: Bilateral nephrolithiasis. No evidence of obstructive uropathy or evidence of recently passed genitourinary calculus. Additional findings as above.
[2017-12-22 16:29] VITALS: RESP 20
[2017-12-22] MEDS ORDERED: Sodium Chloride 0.9% 1,000 ML IV SCH (16:45)
[2017-12-22] MEDS: Dextrose 5%/0.45% NS 1,000 ML IV SCH (19:37)
[2017-12-22] MEDS: (Novolin R) Insulin Human Regular 100 units/ml vial SC SCH (21:41)
--- NOTE | 2017-12-22 22:20 | CP.PCM.HP ---
Past Patient History - Infectious Disease Hx of Infectious Diseases: None - Past Medical History & Family History Past Medical History?: Yes - Past Social History Smoking Status: Former Smoker - CARDIAC Hx Hypertension: Yes - PULMONARY Hx Respiratory Disorders: No - NEUROLOGICAL Hx Neurological Disorder: No - HEENT Hx HEENT Problems: No - RENAL Hx Chronic Kidney Disease: No - ENDOCRINE/METABOLIC Hx Diabetes Mellitus Type 2: Yes - HEMATOLOGICAL/ONCOLOGICAL Hx Blood Disorders: No - INTEGUMENTARY Hx Dermatological Problems: No - MUSCULOSKELETAL/RHEUMATOLOGICAL Hx Musculoskeletal Disorders: No Hx Falls: Yes - GASTROINTESTINAL Hx Gastrointestinal Disorders: No - GENITOURINARY/GYNECOLOGICAL Hx Genitourinary Disorders: No - PSYCHIATRIC Hx Substance Use: No - SURGICAL HISTORY Hx Surgeries: No - ANESTHESIA Hx Anesthesia: Yes Hx Anesthesia Reactions: No Meds Allergies/Adverse Reactions: Allergies Allergy/AdvReac Type Severity Reaction Status Date / Time No Known Allergies Allergy Verified 12/22/17 11:08 Results - Vital Signs Recent Vital Signs: Last Vital Signs Temp 98.7 F 12/22/17 16:28 Pulse 63 12/22/17 16:28 Resp 20 12/22/17 16:28 BP 145/59 L 12/22/17 16:28 Pulse Ox 99 12/22/17 16:28 - Labs Result Diagrams: 12/22/17 12:04 12/22/17 12:04 Labs: Laboratory Results - last 24 hr 12/22/17 12/22/17 12/22/17 12:04 12:04 12:46 WBC 6.9 RBC 3.79 L Hgb 11.1 Hct 32.9 L MCV 86.9 MCH 29.2 MCHC 33.6 RDW 15.8 H Plt Count 217 MPV 9.7 Neut % (Auto) 63.9 Lymph % (Auto) 21.3 Stewart % (Auto) 7.1 Eos % (Auto) 6.5 H Baso % (Auto) 1.2 Neut # (Auto) 4.4 Lymph # (Auto) 1.5 Stewart # (Auto) 0.5 Eos # (Auto) 0.4 Baso # (Auto) 0.1 Sodium 145 Potassium 4.8 Chloride 106 Carbon Dioxide 23 Anion Gap 21 H BUN 57 H Creatinine 3.3 H Est GFR ( Amer) 16 Est GFR (Non-Af Amer) 13 POC Glucose (mg/dL) Random Glucose 108 H Calcium 9.4 Total Bilirubin 0.7 AST 15 ALT 14 Alkaline Phosphatase 66 Total Protein 7.5 Albumin 4.3 Globulin 3.2 Albumin/Globulin Ratio 1.3 Urine Color Yellow Urine Clarity Hazy Urine pH 5.0 Ur Specific [place] 1.013 Urine Protein Negative Urine Glucose (UA) Normal Urine Ketones Negative Urine Blood Negative Urine Nitrate Negative Urine Bilirubin Negative Urine Urobilinogen Normal Ur Leukocyte Esterase Neg Urine WBC (Auto) 1 Urine RBC (Auto) 1 Ur Squamous Epith Cells 1 Urine Bacteria Occ H 12/22/17 12/22/17 16:30 21:40 WBC RBC Hgb Hct MCV MCH MCHC RDW Plt Count MPV Neut % (Auto) Lymph % (Auto) Stewart % (Auto) Eos % (Auto) Baso % (Auto) Neut # (Auto) Lymph # (Auto) Stewart # (Auto) Eos # (Auto) Baso # (Auto) Sodium Potassium Chloride Carbon Dioxide Anion Gap BUN Creatinine Est GFR ( Amer) Est GFR (Non-Af Amer) POC Glucose (mg/dL) 86 127 H Random Glucose Calcium Total Bilirubin AST ALT Alkaline Phosphatase Total Protein Albumin Globulin Albumin/Globulin Ratio Urine Color Urine Clarity Urine pH Ur Specific [place] Urine Protein Urine Glucose (UA) Urine Ketones Urine Blood Urine Nitrate Urine Bilirubin Urine Urobilinogen Ur Leukocyte Esterase Urine WBC (Auto) Urine RBC (Auto) Ur Squamous Epith Cells Urine Bacteria
[2017-12-23] MEDS: Dextrose 5%/0.45% NS 1,000 ML IV SCH ×2 (06:00→17:30)
[2017-12-23] MEDS: (Novolin R) Insulin Human Regular 100 units/ml vial SC SCH ×4 (08:10→22:24)
[2017-12-23 08:37] LABS: BASO # 0.1 K/uL (0.0-0.2); BASO % 0.9 % (0.0-2.0); EOS # 0.4 K/uL (0.0-0.7); EOS % 6.3 % (0.0-4.0); HEMOGLOBIN 10.1 g/dL (11.0-16.0); LYMPH # 2.1 K/uL (1.0-4.3); LYMPH % 33.2 % (20.0-40.0); MEAN CELL VOLUME 85.7 fL (81.0-99.0); MEAN CORPUSCULAR HEMOGLOBIN 29.4 pg (27.0-31.0); MEAN CORPUSCULAR HGB CONC 34.3 g/dL (33.0-37.0); MEAN PLATELET VOLUME 9.5 fL (7.2-11.7); MONO # 0.6 K/uL (0.0-0.8); NEUT # 3.1 K/uL (1.8-7.0); NEUT % 49.6 % (50.0-75.0); RBC 3.43 Mil/uL (3.80-5.20); RED CELL DISTRIBUTION WIDTH 15.4 % (11.5-14.5); WHITE BLOOD COUNT 6.3 K/uL (4.8-10.8)
--- NOTE | 2017-12-23 08:52 | CARD ---
APPROVED REPORT Date of service: 12/22/2017 EKG Measurement Heart [id number] <Conclusion> Normal sinus rhythm Possible Left atrial enlargement Borderline ECG
[2017-12-23 08:59] LABS: ALB/GLOB RATIO 1.4 (1.0-2.1); ALBUMIN 3.6 g/dL (3.5-5.0); CALCIUM 8.8 mg/dl (8.6-10.4)
--- NOTE | 2017-12-23 10:00 | HP ---
Copied To: Bryn Conteh MD Attending MD: Bryn Conteh MD CHIEF COMPLAINT: Weakness, dizziness. HISTORY OF PRESENT ILLNESS: This is an 82-year-old female with history of Alzheimer, diabetes, hypertension, hyperlipidemia. She is compliant with diet, medication, and followup. She has advanced Alzheimer's. She is dependent on her family members for activities of daily living, incontinent of the bladder. The patient was found to be weak, tired, fatigued for the last three to four days, not eating well. The patient's family was concerned, they attempted to feed her. In the meantime, the patient denied any dysuria, hematuria, pyuria. She denies any cough, fever, chills, rigor, sore throat, runny nose. She denies any history of polyuria, polydipsia, polyphagia, infected urine, frequency has gone down. She denies any history of headache. The patient denies any history of blurring of vision, chest pain, palpitation. There is weakness. There is dizziness. There is no history of trauma, fall, loss of consciousness. She denies any tingling, numbness, paresthesia. She denies any hearing . She denies any skin rash. PAST MEDICAL HISTORY: Type 2 diabetes, hypertension, hyperlipidemia, Alzheimer's. SOCIAL HISTORY: She is an ex-smoker, non-ETOH user. CURRENT MEDICATIONS: Aricept, Namenda, Fosamax, vitamin D, losartan, Lipitor, esomeprazole. PHYSICAL EXAMINATION: GENERAL: An elderly female, weak, little tired. VITAL SIGNS: Blood pressure 91/51, pulse 63, respiratory rate 18, temperature 97.4, earlier her blood pressure in my office was 70 . SKIN: Dry. Poor turgor. No bruises. No purpura. No petechiae. No ecchymosis. HEENT: Atraumatic, normocephalic. Negative pallor. Negative jaundice. Extraocular movements are intact. NECK: Supple. No JVD. No lymph node. No thyromegaly. No carotid bruits. CHEST: Chest wall bilateral symmetrical expansion. No masses. BREASTS: Normal. LUNGS: Bilateral decreased air noted. No rhonchi. CARDIOVASCULAR SYSTEM: S1, S2, regular. No ischemia noted. ABDOMEN: Soft, nontender. Bowel sounds are positive. EXTREMITIES: No clubbing, cyanosis, or edema. CENTRAL NERVOUS SYSTEM: The patient is awake, alert. She is not oriented to time, place, person. She is forgetful. She moves all extremities. She is able to walk. ASSESSMENT: 1. Weakness, dehydration, prerenal azotemia. Rule out acute on chronic dehydration. Etiology is poor oral intake. There is no . No fever. Negative urinalysis. Negative chest x-ray. 2. Chronic obstructive pulmonary disease. 3. Hypertension. 4. Alzheimer's. PLAN: Admit. Renal workup has been ordered. The patient is seen and examined. Bryn Conteh MD
--- NOTE | 2017-12-23 10:27 | RAD ---
PROCEDURE: CT Abdomen and Pelvis without intravenous contrast HISTORY: kidney stones COMPARISON: None. CT abdomen and pelvis 12/22/2017 TECHNIQUE: Technique. Contrast Dose: Radiation dose: Total exam DLP = mGy-cm. This CT exam was performed using one or more of the following dose reduction techniques: Automated exposure control, adjustment of the mA and/or kV according to patient size, and/or use of iterative reconstruction technique. FINDINGS: FINDINGS: LOWER THORAX: Unremarkable. LIVER: Unremarkable. No gross lesion or ductal dilatation. GALLBLADDER AND BILE DUCTS: Unremarkable. PANCREAS: Unremarkable. No gross lesion or ductal dilatation. SPLEEN: Unremarkable. ADRENALS: Unremarkable. No mass. KIDNEYS AND URETERS: Unremarkable. No hydronephrosis. No solid mass. VASCULATURE: Unremarkable. No aortic aneurysm. BOWEL: Unremarkable. No obstruction. No gross mural thickening. Moderate left and right colonic stool is present and obscures optimal detail for urolithiasis. No bowel obstruction seen. APPENDIX: Unremarkable. Normal appendix. PERITONEUM: Unremarkable. No free fluid. No free air. LYMPH NODES: Unremarkable. No enlarged lymph nodes. BLADDER: Unremarkable. REPRODUCTIVE: Unremarkable. BONES: No acute fracture. Thoraco lumbar spondylosis. Bilateral hip arthrosis. OTHER FINDINGS: None. Bilateral hemipelvic probable phleboliths with vascular calcifications. There are several five mm faint hyperdensities projecting in the left upper outer quadrant - move these may represent the calcification in the left lower renal collecting system on the CT. There very difficult however to confirm present on the this study. Cephalad to this are multiple similarly sized hyperdensities which appear to 4 superior to be the calculus in the CT lower pole IMPRESSION: Unremarkable non contrast enhanced CT of the abdomen and pelvis. This CT demonstrated calculus in the left lower renal pole collecting system Age related senescent change There is also osseous hypertrophic changes of the facets L4-5 and L5-S1 with concomitant vascular calcification making this area for suspect for any ureteral calculi problematic as well. The pelvic calcifications debris most consistent with phleboliths and vascular calcifications
--- NOTE | 2017-12-23 12:10 | US ---
Renal ultrasound History: Acute renal insufficiency. Comparison: CT abdomen and pelvis dated 12/22/2017 Technique: Real-time sonography was performed through the kidneys. Findings: Right kidney: 9.9 x 4.3 x 6.0 centimeters. Mild increased echogenicity of the renal parenchymal cortex suggestive for medical renal disease. Moderate right renal hydronephrosis. Proximal ureter appears dilated measuring up 2 centimeters. Left kidney: 9.0 x 5.7 x 5.1 centimeters. Mild increased echogenicity of the renal parenchymal cortex suggestive for medical renal disease. Midpole echogenic 9 millimeter focus suggestive for calculus. Mild fullness of the left renal collecting system. Visualized urinary bladder is preserved. Visualized aorta is grossly preserved. Impression: Moderate right renal hydroureteronephrosis. 9 millimeter calculus in the midpole of the left kidney with mild fullness of the left renal collecting system. Clinical correlation. Mild increased echogenicity of the bilateral renal parenchymal cortices suggestive for medical renal disease. Clinical correlation.
--- NOTE | 2017-12-23 13:28 | CP.PCM.CON ---
History of Present Illness - History of Present Illness History of Present Illness: 82 y/o female wth Hx/o HTN, HLD,Osteoarthritis & dementis was brought to ER by the family because of progressive weakness for several days . Pt was found tohave BUN/Creat of 57/3.3 Renal consult is requested for evaluation of azotemia CT scan of abdomen without IV contrast was performed in ER & showed an 8 mm non obstructing Lt renal calculus. & punctate calcifications in Rt kidney Pt denies abdominal or flank pain Dysuria or blod in the urine. Past Patient History - Infectious Disease Hx of Infectious Diseases: None - Past Medical History & Family History Past Medical History?: Yes - Past Social History Smoking Status: Former Smoker - CARDIAC Hx Hypertension: Yes - PULMONARY Hx Respiratory Disorders: No - NEUROLOGICAL Hx Neurological Disorder: No Hx Dementia: Yes - HEENT Hx HEENT Problems: No - RENAL Hx Renal Failure: No - ENDOCRINE/METABOLIC Hx Diabetes Mellitus Type 2: Yes - HEMATOLOGICAL/ONCOLOGICAL Hx Blood Disorders: No - INTEGUMENTARY Hx Dermatological Problems: No - MUSCULOSKELETAL/RHEUMATOLOGICAL Hx Musculoskeletal Disorders: No Hx Falls: Yes - GASTROINTESTINAL Hx Gastrointestinal Disorders: No - GENITOURINARY/GYNECOLOGICAL Hx Genitourinary Disorders: No - PSYCHIATRIC Hx Substance Use: No - SURGICAL HISTORY Hx Surgeries: No - ANESTHESIA Hx Anesthesia: Yes Hx Anesthesia Reactions: No Meds Allergies/Adverse Reactions: Allergies Allergy/AdvReac Type Severity Reaction Status Date / Time No Known Allergies Allergy Verified 12/22/17 11:08 - Medications Medications: Current Medications Donepezil HCl (Aricept) 10 mg PO DAILY [facility] Last Admin: 12/23/17 11:13 Dose: 10 mg Famotidine (Pepcid) 20 mg PO DAILY [facility] Last Admin: 12/23/17 11:13 Dose: 20 mg Ferrous Sulfate (Feosol) 325 mg PO DAILY [facility] Last Admin: 12/23/17 11:13 Dose: 325 mg Heparin Sodium (Porcine) (Heparin) 5,000 units SC Q12 [facility] Last Admin: 12/23/17 11:13 Dose: 5,000 units Dextrose/Sodium Chloride (Dextrose 5%/0.45% Ns 1000 Ml) 1,000 mls @ 100 mls/hr IV .Q10H [facility] Last Admin: 12/23/17 06:00 Dose: 100 mls/hr Insulin Human Regular (Novolin R) 0 unit SC ACHS [facility] PRN Reason: Protocol Last Admin: 12/23/17 12:11 Dose: Not Given Memantine (Namenda) 10 mg PO DAILY [facility] Last Admin: 12/23/17 11:13 Dose: 10 mg Pantoprazole Sodium (Protonix Inj) 40 mg IVP DAILY [facility] Last Admin: 12/23/17 11:14 Dose: Not Given Raloxifene HCl (Evista) 60 mg PO DAILY [facility] Last Admin: 12/23/17 11:13 Dose: 60 mg Rosuvastatin Calcium (Crestor) 20 mg PO [facility] Physical Exam - Constitutional Appears: No Acute Distress Additional comments: Appears weak & slow in answering questions - Head Exam Head Exam: ATRAUMATIC, NORMOCEPHALIC - Eye Exam Additional comments: Conjuntivae pale Sclera anicteric - ENT Exam ENT Exam: Mucous Membranes Dry - Neck Exam Additional comments: Neck supple - Respiratory Exam Respiratory Exam: NORMAL BREATHING PATTERN Additional comments: Lungs clear to auscultation. Good air entry B/L - Cardiovascular Exam Cardiovascular Exam: +S1, +S2 - GI/Abdominal Exam Additional comments: Abdomen soft & nontender. No organomegaly. No CVA tenderness - Rectal Exam Rectal Exam: Deferred - Extremities Exam Additional comments: NO ECC. Results - Vital Signs Recent Vital Signs: Last Vital Signs Temp 98.5 F 12/23/17 07:50 Pulse 66 12/23/17 07:50 Resp 20 12/23/17 07:50 BP 115/58 L 12/23/17 07:50 Pulse Ox 99 12/23/17 07:50 - Labs Result Diagrams: 12/23/17 08:28 12/23/17 08:28 Labs: Laboratory Results - last 24 hr 12/22/17 12/22/17 12/23/17 16:30 21:40 02:08 WBC RBC Hgb Hct MCV MCH MCHC RDW Plt Count MPV Neut % (Auto) Lymph % (Auto) [place] % (Auto) Eos % (Auto) Baso % (Auto) Neut # (Auto) Lymph # (Auto) [place] # (Auto) Eos # (Auto) Baso # (Auto) Sodium Potassium Chloride Carbon Dioxide Anion Gap BUN Creatinine Est GFR ( Amer) Est GFR (Non-Af Amer) POC Glucose (mg/dL) 86 127 H 153 H Random Glucose Calcium Total Bilirubin AST ALT Alkaline Phosphatase Total Protein Albumin Globulin Albumin/Globulin Ratio 12/23/17 12/23/17 12/23/17 07:28 08:28 08:28 WBC 6.3 RBC 3.43 L Hgb 10.1 L Hct 29.4 L MCV 85.7 MCH 29.4 MCHC 34.3 RDW 15.4 H Plt Count 186 MPV 9.5 Neut % (Auto) 49.6 L Lymph % (Auto) 33.2 [place] % (Auto) 10.0 Eos % (Auto) 6.3 H Baso % (Auto) 0.9 Neut # (Auto) 3.1 Lymph # (Auto) 2.1 [place] # (Auto) 0.6 Eos # (Auto) 0.4 Baso # (Auto) 0.1 Sodium 141 Potassium 4.0 Chloride 107 Carbon Dioxide 23 Anion Gap 15 BUN 37 H Creatinine 1.4 H Est GFR ( Amer) 44 Est GFR (Non-Af Amer) 36 POC Glucose (mg/dL) 128 H Random Glucose 128 H Calcium 8.8 Total Bilirubin 0.5 AST 13 L ALT 18 Alkaline Phosphatase 62 Total Protein 6.1 L Albumin 3.6 Globulin 2.6 Albumin/Globulin Ratio 1.4 12/23/17 11:26 WBC RBC Hgb Hct MCV MCH MCHC RDW Plt Count MPV Neut % (Auto) Lymph % (Auto) [place] % (Auto) Eos % (Auto) Baso % (Auto) Neut # (Auto) Lymph # (Auto) [place] # (Auto) Eos # (Auto) Baso # (Auto) Sodium Potassium Chloride Carbon Dioxide Anion Gap BUN Creatinine Est GFR ( Amer) Est GFR (Non-Af Amer) POC Glucose (mg/dL) 149 H Random Glucose Calcium Total Bilirubin AST ALT Alkaline Phosphatase Total Protein Albumin Globulin Albumin/Globulin Ratio Assessment & Plan - Assessment and Plan (Free Text) Assessment: Pt most likely had prerenal aztemia secondary to dehydration. BUN & creatinine have significantly improved with hydration. A baseline creatinine is not available & renal US shows mild echogenicity of both kidneys which suggests possibility of mild CKD Awaitin results of urine spot lytes. Pt was was hypotesive with BP of 110/50 in ER which is also improving Non obstructing renal stone Urinalysis does not reveal any crystals. Plan: Continue with IV hydration Monitor renal function closely. Thank you for allowing me to participate in the care of this patient
[2017-12-23 23:05] LABS: CREATININE, RANDOM URINE 54.7 mg/dL
[2017-12-24] MEDS: Dextrose 5%/0.45% NS 1,000 ML IV SCH ×4 (01:00→13:58)
--- NOTE | 2017-12-24 04:38 | PN ---
Copied To: Bryn Conteh MD Attending MD: Bryn Conteh MD DATE: 12/23/2017 SUBJECTIVE: The patient is more alert, feels better. No fever. No chills. PHYSICAL EXAMINATION: VITAL SIGNS: Blood pressure 115/58, pulse 66, respiratory rate 20, temperature 98.5. LUNGS: Clear. CVS: S1 and S2 regular. ABDOMEN: Soft. ASSESSMENT: 1. Urinary tract infection, gram negative rods, pending sensitivity. 2. Dehydration. 3. Acute kidney injury. PLAN: Continue IV fluids. Start the patient on antibiotics. Monitor the patient. Bryn Conteh MD
[2017-12-24 07:00] LABS: BASO # 0.1 K/uL (0.0-0.2); BASO % 1.1 % (0.0-2.0); EOS # 0.4 K/uL (0.0-0.7); EOS % 6.2 % (0.0-4.0); HEMOGLOBIN 9.8 g/dL (11.0-16.0); LYMPH # 2.3 K/uL (1.0-4.3); LYMPH % 33.5 % (20.0-40.0); MEAN CELL VOLUME 85.1 fL (81.0-99.0); MEAN CORPUSCULAR HEMOGLOBIN 28.9 pg (27.0-31.0); MEAN PLATELET VOLUME 9.2 fL (7.2-11.7); MONO # 0.7 K/uL (0.0-0.8); MONO % 9.6 % (0.0-10.0); NEUT # 3.4 K/uL (1.8-7.0); NEUT % 49.6 % (50.0-75.0); RBC 3.39 Mil/uL (3.80-5.20); RED CELL DISTRIBUTION WIDTH 15.3 % (11.5-14.5); WHITE BLOOD COUNT 6.9 K/uL (4.8-10.8)
[2017-12-24 07:26] LABS: BLOOD UREA NITROGEN 21 mg/dL (7-17); CALCIUM 8.5 mg/dl (8.6-10.4); GFR NON-AFRICAN AMERICAN > 60
[2017-12-24] MEDS: (Novolin R) Insulin Human Regular 100 units/ml vial SC SCH ×4 (08:18→23:19)
--- NOTE | 2017-12-24 13:00 | CP.PCM.PN ---
Subjective - Date & Time of Evaluation Date of Evaluation: 12/24/17 Time of Evaluation: 12:30 - Subjective Subjective: Sitting up in chair Still appears weak but no acute distress. Objective - Vital Signs/Intake and Output Vital Signs (last 24 hours): Temp Pulse Resp BP Pulse Ox 97.8 F 76 20 140/76 100 12/24/17 07:33 12/24/17 07:33 12/24/17 07:33 12/24/17 07:33 12/24/17 07:33 Intake and Output: 12/24/17 12/24/17 06:59 18:59 Intake Total 2050 Output Total 200 Balance 1850 - Medications Medications: Current Medications Donepezil HCl (Aricept) 10 mg PO DAILY [facility] Last Admin: 12/24/17 10:19 Dose: 10 mg Famotidine (Pepcid) 20 mg PO DAILY [facility] Last Admin: 12/24/17 10:18 Dose: 20 mg Ferrous Sulfate (Feosol) 325 mg PO DAILY [facility] Last Admin: 12/24/17 10:18 Dose: 325 mg Heparin Sodium (Porcine) (Heparin) 5,000 units SC Q12 [facility] Last Admin: 12/24/17 10:18 Dose: 5,000 units Dextrose/Sodium Chloride (Dextrose 5%/0.45% Ns 1000 Ml) 1,000 mls @ 100 mls/hr IV .Q10H [facility] Last Admin: 12/24/17 12:00 Dose: Not Given Ceftriaxone Sodium 1 gm/ (Sodium Chloride) 100 mls @ 100 mls/hr IVPB DAILY [facility] PRN Reason: Protocol Last Admin: 12/24/17 10:19 Dose: 100 mls/hr Insulin Human Regular (Novolin R) 0 unit SC ACHS [facility] PRN Reason: Protocol Last Admin: 12/24/17 12:30 Dose: 1 unit Memantine (Namenda) 10 mg PO DAILY [facility] Last Admin: 12/24/17 10:18 Dose: 10 mg Pantoprazole Sodium (Protonix Inj) 40 mg IVP DAILY [facility] Last Admin: 12/24/17 10:18 Dose: 40 mg Raloxifene HCl (Evista) 60 mg PO DAILY [facility] Last Admin: 12/24/17 10:18 Dose: 60 mg Rosuvastatin Calcium (Crestor) 20 mg PO HS [facility] Last Admin: 12/23/17 22:29 Dose: 20 mg - Labs Labs: 12/24/17 06:51 12/24/17 06:51 - Head Exam Head Exam: ATRAUMATIC, NORMOCEPHALIC - Eye Exam Additional comments: No icterus - Neck Exam Additional comments: No nuchal rigidity - Respiratory Exam Respiratory Exam: NORMAL BREATHING PATTERN Additional comments: Lungs clear Good air entry B/L - Cardiovascular Exam Cardiovascular Exam: REGULAR RHYTHM Additional comments: No gallops - GI/Abdominal Exam GI & Abdominal Exam: Soft Additional comments: No tenderness No CVA tenderness - Extremities Exam Additional comments: No ECC Assessment and Plan - Assessment and Plan (Free Text) Assessment: Azotemia secondary to dehydration. Renal function continues to improve Urine culture is growing E coli on an uncatherezide specimen. E.coli sensitive to most Abx Blood pressure is improving. Plan: Suggest to decrease rate of IVFs to 80 cc/hr Continue Ceftriazone
--- NOTE | 2017-12-24 20:41 | CP.PCM.PN ---
Objective - Vital Signs/Intake and Output Vital Signs (last 24 hours): Temp Pulse Resp BP Pulse Ox 97.7 F 72 20 127/93 H 100 12/24/17 15:00 12/24/17 15:00 12/24/17 15:00 12/24/17 15:00 12/24/17 15:00 Intake and Output: 12/24/17 12/25/17 18:59 06:59 Intake Total 1250 Balance 1250 - Medications Medications: Current Medications Donepezil HCl (Aricept) 10 mg PO DAILY [facility] Last Admin: 12/24/17 10:19 Dose: 10 mg Famotidine (Pepcid) 20 mg PO DAILY [facility] Last Admin: 12/24/17 10:18 Dose: 20 mg Ferrous Sulfate (Feosol) 325 mg PO DAILY [facility] Last Admin: 12/24/17 10:18 Dose: 325 mg Heparin Sodium (Porcine) (Heparin) 5,000 units SC Q12 [facility] Last Admin: 12/24/17 10:18 Dose: 5,000 units Ceftriaxone Sodium 1 gm/ (Sodium Chloride) 100 mls @ 100 mls/hr IVPB DAILY [facility] PRN Reason: Protocol Last Admin: 12/24/17 10:19 Dose: 100 mls/hr Dextrose/Sodium Chloride (Dextrose 5%/0.45% Ns 1000 Ml) 1,000 mls @ 70 mls/hr IV .[id number] [facility] Last Admin: 12/24/17 13:58 Dose: 70 mls/hr Insulin Human Regular (Novolin R) 0 unit SC ACHS [facility] PRN Reason: Protocol Last Admin: 12/24/17 17:44 Dose: 1 unit Memantine (Namenda) 10 mg PO DAILY [facility] Last Admin: 12/24/17 10:18 Dose: 10 mg Pantoprazole Sodium (Protonix Ec Tab) 40 mg PO DAILY [facility] Raloxifene HCl (Evista) 60 mg PO DAILY [facility] Last Admin: 12/24/17 10:18 Dose: 60 mg Rosuvastatin Calcium (Crestor) 20 mg PO HS [facility] Last Admin: 12/23/17 22:29 Dose: 20 mg - Labs Labs: 12/24/17 06:51 12/24/17 06:51
--- NOTE | 2017-12-25 01:53 | PN ---
Copied To: Grace Wood MD Attending MD: Grace Wood MD DATE: 12/24/2017 The patient seen because of UTI, dehydration. CAT scan revealed lower pole stone on the right side, though seen with some difficulty, no hydronephrosis, and the patient is not complaining of any pain. KUB was done which did not reveal the stone which mentioned with the CAT scan. The patient no need to have any treatment for the stone. Can be followed as an outpatient with me. Grace Wood MD
[2017-12-25] MEDS: Dextrose 5%/0.45% NS 1,000 ML IV SCH (03:54)
--- NOTE | 2017-12-25 06:27 | PN ---
Copied To: Bryn Conteh MD Attending MD: Bryn Conteh MD DATE: 12/24/2017 SUBJECTIVE: The patient is feeling better. Her BUN and creatinine went down. Her hydration has improved. She has urine culture positive for E. coli. She is on antibiotics. No fever. No chills. PHYSICAL EXAMINATION: VITAL SIGNS: Blood pressure 127/93, pulse 72, respiratory rate 20, temperature 97.7. LUNGS: Clear. CVS: S1 and S2 regular. ABDOMEN: Soft. ASSESSMENT: 1. Urinary tract infection, on antibiotic. 2. Dehydration with prerenal azotemia and IV fluids. 3. Advanced Alzheimer. 4. Hypertension. PLAN: Decrease BP medication. Monitor the patient. Bryn Conteh MD
[2017-12-25 08:11] VITALS: BP 110/73; PULSE 71; TEMP 98.1
[2017-12-25] MEDS: (Novolin R) Insulin Human Regular 100 units/ml vial SC SCH ×2 (08:30→12:01)
[2017-12-25] MEDS ORDERED: Pantoprazole 40 mg EC Tab PO SCH (10:00)
--- NOTE | 2017-12-25 11:42 | PQF ---
PROVIDER RESPONSE TEXT: Acute Kidney Injury in the setting of Gen Weakness and Dehydration with elevated Bun/Crea treated wit h IVF Hydration. REVIEWER QUERY TEXT: Clarification of Clinical Diagnostic Findings Please clarify documentation or clinical relevance for the clinical / diagnostic findings or whether those are insignificant or unable to be further specified. Acute Kidney Injury in the setting of Gen Weakness and Dehydration with elevated Bun/Crea treated wit h IVF Hydration. -Other Explanation. -Unable to Determine The patient's Clinical Indicators include: Clinical Findings : Gen Weakness, Por Po Intake, Bun /Crea= 57/3.3 ; 37/1.4 GFR= 16ml , 44 ml. Treatment IVF w/ D5 1/2 NS at 10ml/hr , serial CMP Risk factor: oor PO Intake, Dehydration Query created by: Rhona Mc on 12/23/2017 5:26 PM Electronically signed by: Bryn Conteh MD 12/25/2017 11:39 AM
[2017-12-25 11:48] LABS: BASO # 0.1 K/uL (0.0-0.2); EOS # 0.3 K/uL (0.0-0.7); EOS % 3.4 % (0.0-4.0); HEMOGLOBIN 10.2 g/dL (11.0-16.0); LYMPH # 2.4 K/uL (1.0-4.3); LYMPH % 31.6 % (20.0-40.0); MEAN CELL VOLUME 86.2 fL (81.0-99.0); MEAN CORPUSCULAR HEMOGLOBIN 28.7 pg (27.0-31.0); MEAN CORPUSCULAR HGB CONC 33.4 g/dL (33.0-37.0); MEAN PLATELET VOLUME 10.2 fL (7.2-11.7); MONO # 0.7 K/uL (0.0-0.8); MONO % 9.3 % (0.0-10.0); NEUT # 4.2 K/uL (1.8-7.0); NEUT % 54.7 % (50.0-75.0); NRBC % 0.1 % (0.0-2.0); RBC 3.54 Mil/uL (3.80-5.20); RED CELL DISTRIBUTION WIDTH 15.4 % (11.5-14.5); WHITE BLOOD COUNT 7.6 K/uL (4.8-10.8)
[2017-12-25 12:26] LABS: BLOOD UREA NITROGEN 11 mg/dL (7-17); CALCIUM 8.4 mg/dl (8.6-10.4); GFR NON-AFRICAN AMERICAN > 60
--- NOTE | 2017-12-25 13:14 | CP.PCM.PN ---
Subjective - Date & Time of Evaluation Date of Evaluation: 12/25/17 Time of Evaluation: 10:30 - Subjective Subjective: appears comfortable in bed Objective - Vital Signs/Intake and Output Vital Signs (last 24 hours): Temp Pulse Resp BP Pulse Ox 98.1 F 71 20 110/73 100 12/25/17 07:00 12/25/17 07:00 12/25/17 07:00 12/25/17 07:00 12/25/17 07:00 Intake and Output: 12/25/17 12/25/17 06:59 18:59 Intake Total 1540 Output Total 500 Balance 1040 - Medications Medications: Current Medications Donepezil HCl (Aricept) 10 mg PO DAILY [facility] Last Admin: 12/25/17 10:07 Dose: 10 mg Famotidine (Pepcid) 20 mg PO DAILY [facility] Last Admin: 12/25/17 10:07 Dose: 20 mg Ferrous Sulfate (Feosol) 325 mg PO DAILY [facility] Last Admin: 12/25/17 10:07 Dose: 325 mg Heparin Sodium (Porcine) (Heparin) 5,000 units SC Q12 [facility] Last Admin: 12/25/17 10:07 Dose: 5,000 units Ceftriaxone Sodium 1 gm/ (Sodium Chloride) 100 mls @ 100 mls/hr IVPB DAILY [facility] PRN Reason: Protocol Last Admin: 12/25/17 10:08 Dose: 100 mls/hr Dextrose/Sodium Chloride (Dextrose 5%/0.45% Ns 1000 Ml) 1,000 mls @ 70 mls/hr IV .[id number] [facility] Last Admin: 12/25/17 03:54 Dose: 70 mls/hr Insulin Human Regular (Novolin R) 0 unit SC ACHS [facility] PRN Reason: Protocol Last Admin: 12/25/17 12:01 Dose: Not Given Memantine (Namenda) 10 mg PO DAILY [facility] Last Admin: 12/25/17 10:07 Dose: 10 mg Pantoprazole Sodium (Protonix Ec Tab) 40 mg PO DAILY [facility] Last Admin: 12/25/17 10:07 Dose: 40 mg Raloxifene HCl (Evista) 60 mg PO DAILY [facility] Last Admin: 12/25/17 10:07 Dose: 60 mg Rosuvastatin Calcium (Crestor) 20 mg PO HS [facility] Last Admin: 12/24/17 21:30 Dose: 20 mg - Labs Labs: 12/25/17 11:31 12/25/17 11:31 - Constitutional Appears: Non-toxic - Head Exam Head Exam: ATRAUMATIC, NORMOCEPHALIC - Eye Exam Eye Exam: Normal appearance - Respiratory Exam Respiratory Exam: NORMAL BREATHING PATTERN Additional comments: Lungs clear - Cardiovascular Exam Cardiovascular Exam: REGULAR RHYTHM, +S1, +S2 - Extremities Exam Additional comments: No ECC Assessment and Plan - Assessment and Plan (Free Text) Assessment: Dehydration & prerenal azotemia Creatinine remains normal Dementia Hx/o HTN UTI receiving Ceftriazone Plan: Continue with IVFs but decrease rate to 60 cc/hr Monitor renal function
--- NOTE | 2017-12-25 13:32 | CP.PCM.PN ---
Subjective - Date & Time of Evaluation Date of Evaluation: 12/25/17 Time of Evaluation: 11:00 - Subjective Subjective: Patient seen today, awake, alert,sitting comfortably in chair , denies any chest pain, sob, abdominal pain, flank pain, dysuria , a febrile Objective - Vital Signs/Intake and Output Vital Signs (last 24 hours): Temp Pulse Resp BP Pulse Ox 98.1 F 71 20 110/73 100 12/25/17 07:00 12/25/17 07:00 12/25/17 07:00 12/25/17 07:00 12/25/17 07:00 Intake and Output: 12/25/17 12/25/17 06:59 18:59 Intake Total 1540 Output Total 500 Balance 1040 - Medications Medications: Current Medications Donepezil HCl (Aricept) 10 mg PO DAILY [facility] Last Admin: 12/25/17 10:07 Dose: 10 mg Famotidine (Pepcid) 20 mg PO DAILY [facility] Last Admin: 12/25/17 10:07 Dose: 20 mg Ferrous Sulfate (Feosol) 325 mg PO DAILY [facility] Last Admin: 12/25/17 10:07 Dose: 325 mg Heparin Sodium (Porcine) (Heparin) 5,000 units SC Q12 [facility] Last Admin: 12/25/17 10:07 Dose: 5,000 units Ceftriaxone Sodium 1 gm/ (Sodium Chloride) 100 mls @ 100 mls/hr IVPB DAILY [facility] PRN Reason: Protocol Last Admin: 12/25/17 10:08 Dose: 100 mls/hr Dextrose/Sodium Chloride (Dextrose 5%/0.45% Ns 1000 Ml) 1,000 mls @ 70 mls/hr IV .[id number] [facility] Last Admin: 12/25/17 03:54 Dose: 70 mls/hr Insulin Human Regular (Novolin R) 0 unit SC ACHS [facility] PRN Reason: Protocol Last Admin: 12/25/17 12:01 Dose: Not Given Memantine (Namenda) 10 mg PO DAILY [facility] Last Admin: 12/25/17 10:07 Dose: 10 mg Pantoprazole Sodium (Protonix Ec Tab) 40 mg PO DAILY [facility] Last Admin: 12/25/17 10:07 Dose: 40 mg Raloxifene HCl (Evista) 60 mg PO DAILY [facility] Last Admin: 12/25/17 10:07 Dose: 60 mg Rosuvastatin Calcium (Crestor) 20 mg PO HS [facility] Last Admin: 12/24/17 21:30 Dose: 20 mg - Labs Labs: 12/25/17 11:31 12/25/17 11:31 - Constitutional Appears: Well, Non-toxic, No Acute Distress - Respiratory Exam Respiratory Exam: Clear to Ausculation Bilateral, NORMAL BREATHING PATTERN - Cardiovascular Exam Cardiovascular Exam: REGULAR RHYTHM, +S1, +S2 - GI/Abdominal Exam GI & Abdominal Exam: Soft Assessment and Plan - Assessment and Plan (Free Text) Assessment: A/P 82 year old female with pmhx of dementia and HTN presented to [facility] ER for for evaluation of generalized weakness, and decreased PO intake. and admitted with dehydration and UTI patient clinically improved with Ivf and aIV antibiotics cr- significantly improved with IVF - 0.8<0.9<1.4<3.3 urine + E coli and treated with rocephin IV Urology Dr. Wood consulted for renal stone , recommended to f/u out patient D/W DR. Conteh ,cleared fro discharge home today and continue keflex and f/u with Dr. Conteh office in 1 week RX eprescribed to Pharmacy
[2017-12-26 10:27] VITALS: O2SAT 95
== END 2017-12-25 15:51 | disposition home or self-care (01) | DRG 683 ==
LOC: C.ER 10:59 → C.9E 14:08 → C.3T 14:57
PROVIDERS: ADMIT Internal Medicine; ATTEND Internal Medicine
DX: N17.9 Acute kidney failure, unspecified (principal); N39.0 Urinary tract infection, site not specified; E86.0 Dehydration; I95.9 Hypotension, unspecified; N20.0 Calculus of kidney; I10 Essential (primary) hypertension; E11.9 Type 2 diabetes mellitus without complications; J44.9 Chronic obstructive pulmonary disease, unspecified; E78.5 Hyperlipidemia, unspecified; G30.9 Alzheimer's disease, unspecified; F02.80 Dementia in other diseases classified elsewhere, unspecified severity, without behavioral disturbance, psychotic disturbance, mood disturbance, and anxiety; B96.20 Unspecified Escherichia coli [E. coli] as the cause of diseases classified elsewhere; Z87.891 Personal history of nicotine dependence